=== PATIENT | male | born 1940 | race Caucasian/White ===

== ENCOUNTER 2020-05-12 17:21 | Inpatient (IN) | payer OTHER, MEDICARE ==
--- NOTE | 2020-05-12 18:38 | PDOC ---
History of Present Illness - General History Source: Patient Exam Limitations: No Limitations - History of Present Illness Initial Comments: 05/12/20 18:34 79-year-old male history of CHF hypertension atrial fibrillation on Coumadin chronic leg wounds and history of frequent falls here today status post fall. Patient states he fell out of bed this evening he was on the floor for a few hours denies any chest pain or palpitations did hit his head sustained contusion to his right eyebrow and his lip states he was unable to get up after his fall has not ambulated since then he called the ambulance. He does live at home with his he normally walks with a cane denies any extremity pain or pelvic pain no chest pain no shortness of breath <Shelby Romo - Last Filed: 05/12/20 18:34> <Amanda Ramirez - Last Filed: 05/12/20 22:28> - General Chief Complaint: Injury Stated Complaint: RT FACE, FALL THIS AM, Past History - Medical History Cardiac Disorders: Yes (CHF,A-FIB ON COUMADIN) COPD: No Diabetes: Yes - Psycho-Social/Smoking History Smoking History: Never smoked Have you smoked in the past 12 months: No <Shelby Romo - Last Filed: 05/12/20 18:34> <Amanda Ramirez - Last Filed: 05/12/20 22:28> - Medical History Allergies/Adverse Reactions: Allergies Allergy/AdvReac Type Severity Reaction Status Date / Time No Known Allergies Allergy Verified 12/29/19 16:29 Home Medications: Ambulatory Orders Allopurinol 300 mg PO DAILY 12/29/19 Carvedilol 25 mg PO DAILY 12/29/19 Diltiazem HCl [Cartia Xt] 120 mg PO DAILY 12/29/19 Dutasteride 0.5 mg PO DAILY 12/29/19 Linagliptin [Tradjenta] 5 mg PO DAILY 12/29/19 Magnesium 500 mg PO DAILY 12/29/19 Metolazone 2.5 mg PO ASDIR 12/29/19 Paricalcitol 1 mcg PO Q2D 12/29/19 Potassium Chloride 20 meq PO DAILY 12/29/19 Torsemide 20 mg PO DAILY 12/29/19 Warfarin Na [Coumadin] 5 mg PO DAILY 12/29/19 Carvedilol [Coreg -] 25 mg PO DAILY tablet 12/31/19 Review of Systems - Review of Systems Constitutional: No: Chills, Diaphoresis, Fever HEENTM: No: Eye Pain Respiratory: No: Cough, Orthopnea, Shortness of Breath Cardiac (ROS): Yes: Edema. No: Chest Pain ABD/GI: No: Nausea, Vomiting : No: Burning, Dysuria, Discharge Integumentary: Yes: Bruising Neurological: No: Headache, Numbness, Paresthesia All Other Systems: Reviewed and Negative <Shelby Romo - Last Filed: 05/12/20 18:34> *Physical Exam - Physical Exam 05/12/20 18:36 Awake alert no acute distress the face is noted for right significant periorbital edema hematoma and swelling extraocular motions are intact there is no palpable bony step-off. The right lower lip is noted for a small external laceration as well as an internal laceration significant hematoma there is no dental laxity no mandible or jaw malocclusion. No midline cervical spinal tenderness. Lungs are clear bilaterally heart is a regular regular no murmurs rubs or gallops abdomen is soft and nontender pelvis is stable extremities are warm well perfused he does have bilateral stockings to his shins for his chronic leg wounds there is no there is mild nonpitting edema upper extremities are atraumatic and nontender <Shelby Romo - Last Filed: 05/12/20 18:34> - Vital Signs Last Vital Signs Temp Pulse Resp BP Pulse Ox 98.5 F 64 20 176/97 H 95 05/12/20 17:22 05/12/20 17:22 05/12/20 17:22 05/12/20 17:22 05/12/20 17:22 <Amanda Ramirez - Last Filed: 05/12/20 22:28> ED Treatment Course - RADIOLOGY Radiology Studies Ordered: Category Date Time Status CERVICAL SPINE CT W/O CONTR [CT] Stat CT Scan 05/12/20 17:[address] W/O CONTRAST [CT] Stat CT Scan 05/12/20 17:[address] WITHOUT CONTRAST [CT] Stat CT Scan 05/12/20 17:37 Ordered <Shelby Romo - Last Filed: 05/12/20 18:34> - LABORATORY CBC & Chemistry Diagram: 05/12/20 19:28 05/12/20 19:11 - ADDITIONAL ORDERS Additional order review: Laboratory Results 05/12/20 05/12/20 05/12/20 19:28 19:11 19:11 WBC 9.6 RBC 4.14 Hgb 13.0 Hct 39.2 MCV 94.6 MCH 31.4 MCHC 33.2 RDW 14.2 D Plt Count 118 L D MPV 8.3 Absolute Neuts (auto) 7.8 Neutrophils % 80.9 D Lymphocytes % 8.4 D Monocytes % 10.3 H Eosinophils % 0.2 D Basophils % 0.2 PT with INR INR PTT (Actin FS) Sodium 141 Potassium 3.7 Chloride 102 Carbon Dioxide 29 Anion Gap 10 BUN 42.0 H Creatinine 1.6 H Est GFR (CKD-EPI)AfAm 46.47 Est GFR (CKD-EPI)NonAf 40.09 Random Glucose 116 H Calcium 9.5 Total Bilirubin 1.6 H AST 23 ALT 20 Alkaline Phosphatase 104 Creatine Kinase 172 Creatine Kinase Index 2.9 CK-MB (CK-2) 5.1 H Troponin I 0.03 Total Protein 6.6 Albumin 3.7 05/12/20 19:11 WBC RBC Hgb Hct MCV MCH MCHC RDW Plt Count MPV Absolute Neuts (auto) Neutrophils % Lymphocytes % Monocytes % Eosinophils % Basophils % PT with INR 19.6 H INR 1.77 H PTT (Actin FS) 36.2 Sodium Potassium Chloride Carbon Dioxide Anion Gap BUN Creatinine Est GFR (CKD-EPI)AfAm Est GFR (CKD-EPI)NonAf Random Glucose Calcium Total Bilirubin AST ALT Alkaline Phosphatase Creatine Kinase Creatine Kinase Index CK-MB (CK-2) Troponin I Total Protein Albumin 05/12/20 19:28 RBC 4.14 MCV 94.6 MCHC 33.2 RDW 14.2 D MPV 8.3 Neutrophils % 80.9 D Lymphocytes % 8.4 D Monocytes % 10.3 H Eosinophils % 0.2 D Basophils % 0.2 - RADIOLOGY Radiology Studies Ordered: Category Date Time Status CHEST X-RAY PORTABLE* [RAD] Stat Radiology 05/12/20 20:49 Taken - Medications Given in the ED: ED Medications Discontinued Medications Generic Name Dose Route Start Last Admin Trade Name Freq PRN Reason Stop Dose Admin Diphtheria/Tetanus/Acell Pertussis 0.5 ml 05/12/20 18:39 05/12/20 19:16 Boostrix - IM 05/12/20 18:40 0.5 ml .ONCE ONE Administration <Amanda Ramirez - Last Filed: 05/12/20 22:28> Medical Decision Making - Medical Decision Making 05/12/20 18:37 79-year-old male history of CHF A. fib hypertension on Coumadin status post trip and fall has a history of frequent falls. Did sustain trauma to his face and head will order CT head maxillofacial and cervical spine to rule out any underlying issues. Do have concerns the patient was unable to get up off the floor for several hours will send basic labs to rule out rhabdomyolysis patient may require admission as he is unsafe for discharge will likely require assessment by PT <Shelby Romo - Last Filed: 05/12/20 18:34> Discharge <Shelby Romo - Last Filed: 05/12/20 18:34> - Discharge Information Problems reviewed: Yes - Admission Yes <Amanda Ramirez - Last Filed: 05/12/20 22:28> - Discharge Information Clinical Impression/Diagnosis: COLIN (acute kidney injury), Gait disorder
[2020-05-12] MEDS ORDERED: DIPHTH,PERTUSS(ACELL),TET 0.5 ML DISP.SYRIN IM ONE ×2 (18:39→19:15)
[2020-05-12 19:28] LABS: BASO % 0.2 % (0-2.0); EOS % 0.2 % (0-4.5); HEMATOCRIT 39.2 % (35.4-49); LYMPH % 8.4 % (8-40); MCH 31.4 pg (25.7-33.7); MCHC 33.2 g/dl (32.0-35.9); MEAN CELL VOLUME 94.6 fl (80-96); MEAN PLT VOLUME 8.3 fl (7.5-11.1); MONO % 10.3 % (3.8-10.2); NEUT % 80.9 % (42.8-82.8); PLATELET COUNT 118 K/MM3 (134-434); RBC 4.14 M/mm3 (4.00-5.60); RDW 14.2 % (11.9-15.9); WHITE BLOOD COUNT 9.6 K/mm3 (4.0-10.8)
[2020-05-12 19:52] LABS: ACTIVATED PTT 36.2 SECONDS (25.2-36.5)
[2020-05-12 19:56] LABS: ALBUMIN 3.7 g/dl (3.4-5.0); BILIRUBIN,TOTAL 1.6 mg/dl (0.2-1); CALCIUM 9.5 mg/dl (8.5-10); CREATININE 1.6 mg/dl (0.55-1.3); POTASSIUM 3.7 mmol/L (3.5-5.1); TOT PROT 6.6 g/dl (6.4-8.2)
[2020-05-12 19:57] LABS: INR 1.77 (0.82-1.09); PROTHROMBIN TIME (PATIENT) 19.6 SEC (10.2-13.0)
--- NOTE | 2020-05-12 21:51 | PDOC ---
*Physical Exam - Vital Signs Last Vital Signs Temp Pulse Resp BP Pulse Ox 98.5 F 64 20 176/97 H 95 05/12/20 17:22 05/12/20 17:22 05/12/20 17:22 05/12/20 17:22 05/12/20 17:22 ED Treatment Course - LABORATORY CBC & Chemistry Diagram: 05/12/20 19:28 05/12/20 19:11 - ADDITIONAL ORDERS Additional order review: Laboratory Results 05/12/20 05/12/20 05/12/20 19:11 19:11 19:11 PT with INR 19.6 H INR 1.77 H PTT (Actin FS) 36.2 Sodium 141 Potassium 3.7 Chloride 102 Carbon Dioxide 29 Anion Gap 10 BUN 42.0 H Creatinine 1.6 H Est GFR (CKD-EPI)AfAm 46.47 Est GFR (CKD-EPI)NonAf 40.09 Random Glucose 116 H Calcium 9.5 Total Bilirubin 1.6 H AST 23 ALT 20 Alkaline Phosphatase 104 Creatine Kinase 172 Creatine Kinase Index 2.9 CK-MB (CK-2) 5.1 H Troponin I 0.03 Total Protein 6.6 Albumin 3.7 05/12/20 19:28 RBC 4.14 MCV 94.6 MCHC 33.2 RDW 14.2 D MPV 8.3 Neutrophils % 80.9 D Lymphocytes % 8.4 D Monocytes % 10.3 H Eosinophils % 0.2 D Basophils % 0.2 - RADIOLOGY Radiology Studies Ordered: Category Date Time Status CHEST X-RAY PORTABLE* [RAD] Stat Radiology 05/12/20 20:49 Taken - Medications Given in the ED: ED Medications Discontinued Medications Generic Name Dose Route Start Last Admin Trade Name Freq PRN Reason Stop Dose Admin Diphtheria/Tetanus/Acell Pertussis 0.5 ml 05/12/20 18:39 05/12/20 19:16 Boostrix - IM 05/12/20 18:40 0.5 ml .ONCE ONE Administration Medical Decision Making - Medical Decision Making 05/12/20 22:09 As noted above, this 79-year-old man with multiple medical problems is brought in by ambulance after a fall out of bed. Patient required EMS to lift the patient off of the floor and brought him to the ER. Patient states that he fell in a similar fashion with left serious effects approximately 2 days ago. He denies vertigo/lightheadedness, stating that his episodes of falling are usually related to falling out of bed. The patient was admitted earlier this year with frequent falls. He states that he was briefly in rehab for gait training. He states that he uses a cane at home for ambulation. He has a walker but does not use it Exam as noted Noncontrast head CT/facial bone CT/cervical spine CT performed. Studies interpreted by Dr. Gutierrez of the radiology staff: No evidence of acute intracranial pathology seen. The patient has evidence of normal pressure hydrocephalus. CT of the C-spine notable for marked C2/C3 spinal stenosis. No acute fractures or dislocations are seen. No facial fractures evident Laboratory evaluation notable for BUN of 42 with a creatinine of 1.6. This is somewhat elevated from previous values this year (Cre 1.4/Bun 25) In light of the patient's frequent falls and warfarin therapy, he should be admitted for neurologic observation/repeat head CT. Furthermore, appears that he has not had neurologic evaluation regarding his possible normal pressure hydrocephalus and cervical spinal stenosis/cord impingement Case discussed with SON Dumont of [facility] service. Patient will be admitted to Dr. Pena's service Discharge - Discharge Information Problems reviewed: Yes Clinical Impression/Diagnosis: COLIN (acute kidney injury), Gait disorder - Follow up/Referral - Patient Discharge Instructions - Post Discharge Activity
[2020-05-12] MEDS ORDERED: SODIUM CHLORIDE 1,000 ML IV SCH (22:30)
--- NOTE | 2020-05-12 22:35 | HP ---
CHIEF COMPLAINT: Fall at home, Unsteady Gait, Bruising to face and Lip PCP: [facility] Cardiology: Dr. Lazo Vascular/Wound Care: Dr. Alvino Marquez HISTORY OF PRESENT ILLNESS: This is a 79 y/o male with a PMHx of CHF, HTN, Afib (on Coumadin), chronic leg wounds, frequent falls. Who present to the ED for s/p fall. Patient states he fell out of bed this evening he was on the floor for a few hours, and could not get up. He reports hitting his head and lip, he denies LOC. Patient reports that he has a walker that he does not use. He denies fever, chills, cough, SOB, dizziness, WANG, CP, palpitations, AP, N/V/D, melena, hematochezia, dysuria. Patient denies sick contacts or recent travel. ER course was notable for: (1) Head CT- neg ICH (2) Facial Bones CT- neg fx (3) C- Spine CT- neg fx Recent Travel: None PAST MEDICAL HISTORY: See HPI PAST SURGICAL HISTORY: None reported Social History: Smoking: Alcohol: Drugs: Lives with spouse Allergies No Known Allergies Allergy (Verified 12/29/19 16:29) HOME MEDICATIONS: Home Medications Medication Instructions Recorded Allopurinol 300 mg PO DAILY 12/29/19 Carvedilol 25 mg PO DAILY 12/29/19 Diltiazem HCl [Cartia Xt] 120 mg PO DAILY 12/29/19 Dutasteride 0.5 mg PO DAILY 12/29/19 Linagliptin [Tradjenta] 5 mg PO DAILY 12/29/19 Magnesium 500 mg PO DAILY 12/29/19 Metolazone 2.5 mg PO ASDIR 12/29/19 Paricalcitol 1 mcg PO Q2D 12/29/19 Potassium Chloride 20 meq PO DAILY 12/29/19 Torsemide 20 mg PO DAILY 12/29/19 Warfarin Na [Coumadin] 5 mg PO DAILY 12/29/19 Carvedilol [Coreg -] 25 mg PO DAILY tablet 12/31/19 REVIEW OF SYSTEMS CONSTITUTIONAL: generalized weakness Absent: fever, chills, diaphoresis, malaise, loss of appetite, weight change HEENT: Absent: rhinorrhea, nasal congestion, throat pain, throat swelling, difficulty swallowing, mouth swelling, ear pain, eye pain, visual changes CARDIOVASCULAR: Absent: chest pain, syncope, palpitations, irregular heart rate, lightheadedness, peripheral edema RESPIRATORY: Absent: cough, shortness of breath, dyspnea with exertion, orthopnea, wheezing, stridor, hemoptysis GASTROINTESTINAL: Absent: abdominal pain, abdominal distension, nausea, vomiting, diarrhea, constipation, melena, hematochezia GENITOURINARY: Absent: dysuria, frequency, urgency, hesitancy, hematuria, flank pain, genital pain MUSCULOSKELETAL: Absent: myalgia, arthralgia, joint swelling, back pain, neck pain SKIN: hematoma right eye lid, hematoma right upper lip Absent: rash, itching, pallor HEMATOLOGIC/IMMUNOLOGIC: easy bruising Absent: easy bleeding, lymphadenopathy, frequent infections ENDOCRINE: Absent: unexplained weight gain, unexplained weight loss, heat intolerance, cold intolerance NEUROLOGIC: unsteady gait Absent: headache, focal weakness or paresthesias, dizziness, seizure, mental status changes, bladder or bowel incontinence PSYCHIATRIC: Absent: anxiety, depression, suicidal or homicidal ideation, hallucinations. PHYSICAL EXAMINATION Vital Signs - 24 hr 05/12/20 17:22 Temperature 98.5 F Pulse Rate 64 Respiratory 20 Rate Blood Pressure 176/97 H O2 Sat by Pulse 95 Oximetry (%) GENERAL: Awake, alert, and fully oriented, in no acute distress. HEAD: Normal cephalic with ecchymotic bruising to face EYES: Hematoma to R- eye lid. Pupils equal, round and reactive to light, extraocular movements intact, sclera anicteric, conjunctiva clear. No lid lag. EARS, NOSE, THROAT: Ears normal, nares patent, oropharynx clear without exudates. Moist mucous membranes. NECK: Normal range of motion, supple without lymphadenopathy, JVD, or masses. LUNGS: Breath sounds scattered diffuse rhonchi throughout. No accessory muscle use. HEART: Irregular rate and rhythm, normal S1 and S2 with murmur, No rub or gallop. ABDOMEN: Soft, nontender, not distended, normoactive bowel sounds, no guarding, no rebound, no masses. No hepatomegaly or splenomegaly. MUSCULOSKELETAL: Normal range of motion at all joints. No bony deformities or tenderness. No CVA tenderness. UPPER EXTREMITIES: 2+ pulses, warm, well-perfused. No cyanosis. No clubbing. No peripheral edema. LOWER EXTREMITIES: 2+ pulses, warm, well-perfused. No calf tenderness. Bilateral +2 pitting peripheral edema. NEUROLOGICAL: Cranial nerves II-XII intact. Normal speech. Gait not observed. PSYCHIATRIC: Cooperative. Good eye contact. Appropriate mood and affect. SKIN: Venous Stasis Ulcers, poor skin turgor. Warm, dry, no rashes noted, normal capillary refill. Laboratory Results - last 24 hr 05/12/20 05/12/20 05/12/20 19:11 19:11 19:11 WBC RBC Hgb Hct MCV MCH MCHC RDW Plt Count MPV Absolute Neuts (auto) Neutrophils % Lymphocytes % Monocytes % Eosinophils % Basophils % PT with INR 19.6 H INR 1.77 H PTT (Actin FS) 36.2 Sodium 141 Potassium 3.7 Chloride 102 Carbon Dioxide 29 Anion Gap 10 BUN 42.0 H Creatinine 1.6 H Est GFR (CKD-EPI)AfAm 46.47 Est GFR (CKD-EPI)NonAf 40.09 Random Glucose 116 H Calcium 9.5 Total Bilirubin 1.6 H AST 23 ALT 20 Alkaline Phosphatase 104 Creatine Kinase 172 Creatine Kinase Index 2.9 CK-MB (CK-2) 5.1 H Troponin I 0.03 Total Protein 6.6 Albumin 3.7 05/12/20 19:28 WBC 9.6 RBC 4.14 Hgb 13.0 Hct 39.2 MCV 94.6 MCH 31.4 MCHC 33.2 RDW 14.2 D Plt Count 118 L D MPV 8.3 Absolute Neuts (auto) 7.8 Neutrophils % 80.9 D Lymphocytes % 8.4 D Monocytes % 10.3 H Eosinophils % 0.2 D Basophils % 0.2 PT with INR INR PTT (Actin FS) Sodium Potassium Chloride Carbon Dioxide Anion Gap BUN Creatinine Est GFR (CKD-EPI)AfAm Est GFR (CKD-EPI)NonAf Random Glucose Calcium Total Bilirubin AST ALT Alkaline Phosphatase Creatine Kinase Creatine Kinase Index CK-MB (CK-2) Troponin I Total Protein Albumin ASSESSMENT/PLAN: This is a 79 y/o male with a PMHx of: CHF, Afib, HTN, frequent Falls, chronic b/l LE edema. Admitted for Frequent Falls, COLIN for further evaluation of their emergent condition Plan: 1. Frequent Falls On coumadin (Afib) Head CT- neg Facial Bones CT- neg fx C- Spine CT- neg fx Repeat Head CT in 12 Hrs Neuro checks Monitor vitals Fall Precautions PT eval Consider STR 2. COLIN Likely due to dehydration slightly above baseline (1.4-1.5) Consider Nephrology consult Monitor CMP Avoid Nephrotoxic drugs 3. Atrial Fibrillation EKG reviewed [id number] 4 Hold Coumadin until repeat Head CT concerning for ICH secondary to recent fall INR Subtherapeutic 1.77 4. Congestive Heart Failure Chest xray image- pulm vasc congestion Continue Lasix Strict INOs Daily weight Monitor vitals Monitor CMP Elevate extremities 5. HTN suboptimal Monitor BP Continue home meds Monitor renal function 6. Screening for Covid 19 Low Risk COVID PCR-pending Isolation Precautions FEN Fluid Restriction Replete lytes Low Na Diet DVT ppx OOB TEDs Continue Coumadin (post 2nd Head CT-results) Dispo: Requires Inpatient Care Family Medical History Family History: Unremarkable Problem List - Problem (1) Falls frequently Code(s): R29.6 - REPEATED FALLS (2) Gait disorder Code(s): R26.9 - UNSPECIFIED ABNORMALITIES OF GAIT AND MOBILITY (3) COLIN (acute kidney injury) Code(s): N17.9 - ACUTE KIDNEY FAILURE, UNSPECIFIED (4) A-fib Code(s): I48.91 - UNSPECIFIED ATRIAL FIBRILLATION (5) Supratherapeutic INR Code(s): R79.1 - ABNORMAL COAGULATION PROFILE (6) CHF (congestive heart failure) Code(s): I50.9 - HEART FAILURE, UNSPECIFIED (7) HTN (hypertension) Code(s): I10 - ESSENTIAL (PRIMARY) HYPERTENSION (8) Encounter for screening laboratory testing for COVID-19 virus Code(s): Z11.59 - ENCOUNTER FOR SCREENING FOR OTHER VIRAL DISEASES Visit type - Medication Review Med list reviewed for High Risk Meds patients 65 and older: Yes - Emergency Visit Emergency Visit: Yes ED Registration Date: 05/12/20 Care time: The patient presented to the Emergency Department on the above date and was hospitalized for further evaluation of their emergent condition. - New Patient This patient is new to me today: Yes Date on this admission: 05/12/20 - Critical Care Critical Care patient: No
[2020-05-12 23:29] LABS: EPITHELIAL CELLS RARE /hpf
[2020-05-13 01:38] VITALS: BMI 37.0
[2020-05-13 08:24] LABS: BASO % 0.4 % (0-2.0); EOS % 1.2 % (0-4.5); HEMATOCRIT 36.9 % (35.4-49); HEMOGLOBIN 11.6 GM/dl (11.7-16.9); LYMPH % 16.6 % (8-40); MCH 29.7 pg (25.7-33.7); MCHC 31.4 g/dl (32.0-35.9); MEAN CELL VOLUME 94.5 fl (80-96); MEAN PLT VOLUME 8.6 fl (7.5-11.1); NEUT % 68.8 % (42.8-82.8); PLATELET COUNT 104 K/MM3 (134-434); RDW 14.7 % (11.9-15.9); WHITE BLOOD COUNT 6.2 K/mm3 (4.0-10.8)
[2020-05-13 08:29] LABS: ALBUMIN 3.2 g/dl (3.4-5.0); BILIRUBIN,TOTAL 1.6 mg/dl (0.2-1); CALCIUM 9.3 mg/dl (8.5-10); CREATININE 1.3 mg/dl (0.55-1.3); MAGNESIUM 1.5 mg/dL (1.8-2.4); TOT PROT 5.7 g/dl (6.4-8.2)
[2020-05-13] MEDS ORDERED: POTASSIUM CHLORIDE ORAL LIQUID 20 MEQ/15 ML PO ONE ×2 (09:01→17:00)
[2020-05-13] MEDS ORDERED: MAGNESIUM 2GM/50ML STERILE WATER IVPB IVPB ONE (09:01)
[2020-05-13] MEDS ORDERED: CARVEDILOL 25 MG TABLET (FP) PO SCH (10:00)
[2020-05-13] MEDS ORDERED: FUROSEMIDE 40 MG/4 ML INJECTABLE VIAL IVPUSH SCH (10:00)
[2020-05-13] MEDS: DUTASTERIDE 0.5 MG CAP (FP) PO SCH (10:09)
[2020-05-13] MEDS: ALLOPURINOL 300 MG TABLET (FP) PO SCH (10:09)
--- NOTE | 2020-05-13 11:43 | PN ---
Progress Note, Physician Chief Complaint: s/p fall History of Present Illness: 24HR EVENTS - head CT negative for bleed, repeat CT due later today -coumadin on hold HPI: This is a 79 y/o male with a PMHx of CHF, HTN, Afib (on Coumadin), chronic leg wounds, frequent falls. Who present to the ED for s/p fall. Patient states he fell out of bed this evening he was on the floor for a few hours, and could not get up. He reports hitting his head and lip, he denies LOC. Patient reports that he has a walker that he does not use. He denies fever, chills, cough, SOB, dizziness, WANG, CP, palpitations, AP, N/V/D, melena, hematochezia, dysuria. Patient denies sick contacts or recent travel. - Current Medication List Current Medications: Active Medications Allopurinol (Zyloprim -) 300 mg PO DAILY [facility] Last Admin: 05/13/20 10:09 Dose: 300 mg Documented by: Carvedilol (Coreg -) 25 mg PO DAILY [facility] Diltiazem HCl (Cardizem Cd -) 120 mg PO DAILY [facility] Last Admin: 05/13/20 10:09 Dose: 120 mg Documented by: Dutasteride (Avodart -) 0.5 mg PO DAILY [facility] Last Admin: 05/13/20 10:09 Dose: 0.5 mg Documented by: Furosemide (Lasix Injection -) 20 mg IVPUSH DAILY [facility] Last Admin: 05/13/20 10:09 Dose: 20 mg Documented by: - Objective Vital Signs: Vital Signs Temperature 98.4 F 05/13/20 08:45 Pulse Rate 79 05/13/20 08:45 Respiratory Rate 18 05/13/20 09:00 Blood Pressure 116/68 05/13/20 08:45 O2 Sat by Pulse Oximetry (%) 94 L 05/13/20 09:00 Constitutional: Yes: No Distress, Calm Eyes: Yes: Other ( Other (right orbital ecchymosis, right upper and lower lip swollen)) HENT: Yes: Other (swelling to right side of face) Neck: Yes: Supple Cardiovascular: Yes: Pulse Irregular Respiratory: Yes: Regular, CTA Bilaterally Gastrointestinal: Yes: Soft, Abdomen, Obese ...Rectal Exam: Yes: Deferred Musculoskeletal: Yes: Joint Stiffness, Muscle Weakness Extremities: Yes: Other (hyperpigmented LEs, LLE with dressing in place) Edema: Yes Edema: LLE: Trace, RLE: Trace Peripheral Pulses WNL: Yes Peripheral Pulses: Left Radial: 2+, Right Radial: 2+ Integumentary: Yes: Venous Stasis Changes ( Venous Stasis Changes (b/l LEs)) Neurological: Yes: Unsteady Gait, Weakness ...Motor Strength: LLE (4/5), RLE (4/5) Psychiatric: Yes: Alert, Oriented Labs: CBC, BMP 05/13/20 06:57 05/13/20 06:57 INR, PTT INR 1.77 (0.82-1.09) H 05/12/20 19:11 Problem List - Problems (1) BPH (benign prostatic hyperplasia) Assessment/Plan: continue avodart Code(s): N40.0 - BENIGN PROSTATIC HYPERPLASIA WITHOUT LOWER URINRY TRACT SYMP (2) DVT prophylaxis Assessment/Plan: OOB to chair daily Code(s): Z29.9 - ENCOUNTER FOR PROPHYLACTIC MEASURES, UNSPECIFIED (3) A-fib Assessment/Plan: hold coumadin until repeat head CT finalized continue coreg, cardizem continuous tele Code(s): I48.91 - UNSPECIFIED ATRIAL FIBRILLATION (4) CHF (congestive heart failure) Assessment/Plan: switch lasix back to home dose of torsemide hold metolazone which is BIW daily weights replete electrolytes PRN KCL BID as verified by pt's outpt pharmacy Code(s): I50.9 - HEART FAILURE, UNSPECIFIED (5) Gait disorder Assessment/Plan: PT daily Short term rehab recommended fall precautions, bed alarm Code(s): R26.9 - UNSPECIFIED ABNORMALITIES OF GAIT AND MOBILITY (6) HTN (hypertension) Assessment/Plan: coreg 25mg BID cardiac diet Code(s): I10 - ESSENTIAL (PRIMARY) HYPERTENSION (7) Falls frequently Assessment/Plan: will restart coumadin , depending on head CT results assist with ADLs Code(s): R29.6 - REPEATED FALLS Impression/Plan Impression/Plan: Dispo: Pt requires discharge to SNF/Short term rehab due to unsteady gait and f requent falls Code status: Full Visit type - Emergency Visit Emergency Visit: Yes ED Registration Date: 05/12/20 Care time: The patient presented to the Emergency Department on the above date and was hospitalized for further evaluation of their emergent condition. - New Patient This patient is new to me today: Yes Date on this admission: 05/13/20 - Critical Care Critical Care patient: No - Discharge Referral Referred to [facility] No - Medication Review Med list reviewed for High Risk Meds patients 65 and older: Yes
--- NOTE | 2020-05-13 12:37 | EKG ---
Test Reason : Blood Pressure : / mmHG Vent. Rate : 086 BPM Atrial Rate : 087 BPM P-R Int : 000 ms QRS Dur : 112 ms QT Int : 420 ms P-R-T Axes : 000 110 184 degrees QTc Int : 502 ms ATRIAL FIBRILLATION RIGHT AXIS DEVIATION ABNORMAL ECG Confirmed by ADALBERTO PEACOCK MD ([id number]) on 05/13/2020 12:37:12 PM Referred By: MD REDDY Confirmed By:ADALBERTO PEACOCK MD
[2020-05-13] MEDS ORDERED: CARVEDILOL 25 MG TABLET (FP) PO ONE (13:00)
[2020-05-13] MEDS ORDERED: ACETAMINOPHEN 325 MG TABLET (FP) PO PRN (15:34)
[2020-05-13] MEDS: TORSEMIDE 20 MG TABLET (FP) PO SCH (18:22)
[2020-05-13] MEDS: SENNOSIDES 8.6MG TABLET (FP) PO SCH (21:37)
[2020-05-13] MEDS: DOCUSATE SODIUM 100 MG CAPSULE (FP) PO SCH (21:37)
[2020-05-13] MEDS: CARVEDILOL 25 MG TABLET (FP) PO SCH (21:37)
[2020-05-13] MEDS ORDERED: TORSEMIDE 20 MG TABLET (FP) PO SCH (22:00)
[2020-05-14] MEDS ORDERED: LOCK ITEM NR ONE (06:37)
[2020-05-14 07:55] LABS: BASO % 1.1 % (0-2.0); EOS % 3.3 % (0-4.5); HEMATOCRIT 38.4 % (35.4-49); HEMOGLOBIN 12.1 GM/dl (11.7-16.9); LYMPH % 18.6 % (8-40); MCH 29.8 pg (25.7-33.7); MCHC 31.4 g/dl (32.0-35.9); MEAN PLT VOLUME 8.1 fl (7.5-11.1); MONO % 12.2 % (3.8-10.2); NEUT % 64.8 % (42.8-82.8); PLATELET COUNT 114 K/MM3 (134-434); RBC 4.04 M/mm3 (4.00-5.60); RDW 14.4 % (11.9-15.9); WHITE BLOOD COUNT 5.9 K/mm3 (4.0-10.8)
[2020-05-14 08:00] LABS: ALBUMIN 3.3 g/dl (3.4-5.0); BILIRUBIN,TOTAL 1.4 mg/dl (0.2-1); CALCIUM 9.2 mg/dl (8.5-10); CREATININE 1.3 mg/dl (0.55-1.3); MAGNESIUM 1.6 mg/dL (1.8-2.4)
[2020-05-14 08:32] LABS: ACTIVATED PTT 31.3 SECONDS (25.2-36.5)
[2020-05-14 08:36] LABS: INR 1.41 (0.82-1.09); PROTHROMBIN TIME (PATIENT) 15.7 SEC (10.2-13.0)
[2020-05-14] MEDS ORDERED: MAGNESIUM SULFATE IN WATER 2 GM/50 ML IVPB IVPB ONE (08:48)
[2020-05-14] MEDS ORDERED: POTASSIUM CHLORIDE ORAL LIQUID 20 MEQ/15 ML PO ONE (09:00)
[2020-05-14 09:30] LABS: POTASSIUM 2.9 mmol/L (3.5-5.1)
[2020-05-14] MEDS: ALLOPURINOL 300 MG TABLET (FP) PO SCH (09:34)
[2020-05-14] MEDS: DOCUSATE SODIUM 100 MG CAPSULE (FP) PO SCH ×2 (09:34→21:55)
[2020-05-14] MEDS: POTASSIUM CHLORIDE TABS 20 MEQ TABLET.ER (FP) PO SCH ×2 (09:34→21:55)
[2020-05-14] MEDS: MAGNESIUM OXIDE 400 MG TABLET (FP) PO SCH (09:35)
[2020-05-14] MEDS: TORSEMIDE 20 MG TABLET (FP) PO SCH ×2 (09:35→18:42)
[2020-05-14] MEDS: DUTASTERIDE 0.5 MG CAP (FP) PO SCH (09:35)
[2020-05-14] MEDS: CARVEDILOL 25 MG TABLET (FP) PO SCH ×2 (09:35→21:55)
--- NOTE | 2020-05-14 10:03 | DS ---
Physical Exam: SUBJECTIVE: Patient seen and examined OBJECTIVE: Vital Signs Period Temp Pulse Resp BP Sys/[place] Pulse Ox Last 24 Hr 98.2 F-98.7 F 64-69 18-20 138-163/70-84 92-100 PHYSICAL EXAM GENERAL: The patient is awake, alert, and fully oriented, in no acute distress. HEAD: Normal with no signs of trauma. EYES: PERRL, + orbital ecchymosis sclera anicteric, conjunctiva clear. ENT: nares patent, oropharynx clear without exudates, moist mucous membranes. + swelling and ecchymosis to right side of upper and lower lip. NECK: Trachea midline, full range of motion, supple. LUNGS: Breath sounds equal, clear to auscultation bilaterally, no wheezes, no crackles, no accessory muscle use. HEART: Regular rate and rhythm, S1, S2 without murmur, rub or gallop. ABDOMEN: Soft, nontender, nondistended, normoactive bowel sounds, no guarding, no rebound, no hepatosplenomegaly, no masses. EXTREMITIES: 2+ pulses, warm, well-perfused, no edema. NEUROLOGICAL: Slow speech, gait not observed, pt seated at edge of bed. PSYCH: Normal mood, normal affect. SKIN: Warm, dry, + hyperpigmentation b/l LEs, LLE with bandage in place. LABS Laboratory Results - last 24 hr 05/12/20 05/13/20 05/13/20 23:50 06:57 12:32 WBC RBC Hgb Hct MCV MCH MCHC RDW Plt Count MPV Absolute Neuts (auto) Neutrophils % Lymphocytes % Monocytes % Eosinophils % Basophils % PT with INR INR PTT (Actin FS) Sodium Potassium Chloride Carbon Dioxide Anion Gap BUN Creatinine Est GFR (CKD-EPI)AfAm Est GFR (CKD-EPI)NonAf POC Glucometer 133 Random Glucose Calcium Magnesium Total Bilirubin AST ALT Alkaline Phosphatase Total Protein Albumin TSH 0.79 COVID-19 ([facility]) Not detected 05/13/20 05/13/20 05/14/20 16:48 21:43 07:05 WBC 5.9 RBC 4.04 Hgb 12.1 Hct 38.4 MCV 95.0 MCH 29.8 MCHC 31.4 L RDW 14.4 Plt Count 114 L MPV 8.1 Absolute Neuts (auto) 3.8 Neutrophils % 64.8 Lymphocytes % 18.6 Monocytes % 12.2 H Eosinophils % 3.3 D Basophils % 1.1 PT with INR INR PTT (Actin FS) Sodium Potassium Chloride Carbon Dioxide Anion Gap BUN Creatinine Est GFR (CKD-EPI)AfAm Est GFR (CKD-EPI)NonAf POC Glucometer 114 126 Random Glucose Calcium Magnesium Total Bilirubin AST ALT Alkaline Phosphatase Total Protein Albumin TSH COVID-19 ([facility]) 05/14/20 05/14/20 07:05 07:05 WBC RBC Hgb Hct MCV MCH MCHC RDW Plt Count MPV Absolute Neuts (auto) Neutrophils % Lymphocytes % Monocytes % Eosinophils % Basophils % PT with INR 15.7 H INR 1.41 H PTT (Actin FS) 31.3 Sodium 138 Potassium 2.9 L* Chloride 98 Carbon Dioxide 30 Anion Gap 10 BUN 35.0 H Creatinine 1.3 Est GFR (CKD-EPI)AfAm 59.73 Est GFR (CKD-EPI)NonAf 51.53 POC Glucometer Random Glucose 110 H Calcium 9.2 Magnesium 1.6 L Total Bilirubin 1.4 H AST 19 ALT 16 Alkaline Phosphatase 87 Total Protein 6.0 L Albumin 3.3 L TSH COVID-19 ([facility]) HOSPITAL COURSE: Date of Admission:05/12/20 Date of Discharge: 05/14/20 Minutes to complete discharge: 45 Discharge Summary Problems reviewed: Yes Reason For Visit: ACUTE KIDNEY INJURY, GAIT DISORDER. Current Active Problems A-fib (Acute) COLIN (acute kidney injury) (Acute) BPH (benign prostatic hyperplasia) (Acute) CHF (congestive heart failure) (Acute) DVT prophylaxis (Acute) Encounter for screening laboratory testing for COVID-19 virus (Acute) Gait disorder (Acute) HTN (hypertension) (Acute) Supratherapeutic INR (Acute) Procedures: Principal: Facial Bones CT 05/12/2020. Impression: No fracture is identified. Reported By: Maikel Gutierrez MD 05/12/20 [address]. . Head CT 05/12/2020. Impression: No CT evidence of acute intracranial pathology. Note is again made of mild to moderate ventricular dilatation probably due to central atrophy. Correlate clinically in regards to the possibility of normal pressure hydrocephalus. Mild periventricular chronic microvascular ischemic changes are seen. There has been no definite interval change in comparison to a prior CT exam of 12/29/2019.Reported By: Maikel Gutierrez MD 05/12/[address] cervical spine 05/12/2020. Impression: Limited exam as described above. No obvious acute fracture is noted. Marked C2- C3 degenerative central canal stenosis is seen with corresponding spinal cord impingement. Reported By: Maikel Gutierrez MD 05/12/[address] 05/13/2020. IMPRESSION: No significant interval change or CT evidence of acute intracranial pathology is identified. Reported By: Shukri Paez MD 05/13/20 [id number]. Other Procedures: EKG 05/12/2020. Afib 86bpm. Urine Culture 05/13/2020 - No growth. COVID -19 screen - Not detected Hospital Course: This is a 79 y/o male with a PMHx of CHF, HTN, Afib (on Coumadin), chronic leg wounds, frequent falls. Who present to the ED for s/p fall. Patient states he fell out of bed this evening he was on the floor for a few hours, and could not get up. He reports hitting his head and lip, he denies LOC. Patient reports that he has a walker that he does not use. He denies fever, chills, cough, SOB, dizziness, WANG, CP, palpitations, AP, N/V/D, melena, hematochezia, dysuria. Patient denies sick contacts or recent travel. ER course was notable for: (1) Head CT- neg ICH (2) Facial Bones CT- neg fx (3) C- Spine CT- neg fx You were admitted for observation with repeat head CT 36hrs later. Repeat head CT was negtive on the afternoon of 05/13 and coumadin restarted on the morning of 05/14. Your INR was 1.41 on 05/14, please follow up with your mental health clinician or PCP for repeat INR testing within 5days to determine if coumadin levels are within therapeutic range. On admission your creatinine was slightly elevated at 1.6, your were gently fluid resuscitated with Creatinine downtrending to 1.3. Your potassium and Magnesium were replaced on a daily basis due to significantly low levels. Health Concerns: hypokalemia - your potassium was persistently low during your hospital course which required aggressive supplementation. As per your pharmacist, you take potassium 20meq twice daily, please increase to 40meq in the morning and 20meq in the afternoon. Unsteady gait/ frequent falls while on anticoagulation -physical therapy recommended short rehabilitation, which you refused. The risk associated with falls while on anticoagulation were reviewed with you. you refused short term rehab placement and opted for home PT provided through the [facility]. Goals: Fall prevention: Simple tips to prevent falls Falls put you at risk of serious injury. Prevent falls with these simple fall- prevention measures, from reviewing your medications to hazard-proofing your home. 1. Make an appointment with your doctor Begin your fall-prevention plan by making an appointment with your doctor. Be prepared to answer questions such as: What medications are you taking? Make a list of your prescription and vcbs-iym-[id number] medications and supplements, or bring them with you to the appointment. Your doctor can review your medications for side effects and interactions that may increase your risk of falling. To help with fall prevention, your doctor may consider weaning you off medications that make you tired or affect your thinking, such as sedatives and some types of antidepressants. Have you fallen before? Write down the details, including when, where and how you fell. Be prepared to discuss instances when you almost fell but were caught by someone or managed to grab hold of something just in time. Details such as these may help your doctor identify specific fall-prevention strategies. Could your health conditions cause a fall? Certain eye and ear disorders may increase your risk of falls. Be prepared to discuss your health conditions and how comfortable you are when you walk for example, do you feel any dizziness, joint pain, shortness of breath, or numbness in your feet and legs when you walk? Your doctor may evaluate your muscle strength, balance and walking style (gait) as well. 2. Keep moving Physical activity can go a long way toward fall prevention. With your doctor's OK, consider activities such as walking, water workouts or bushra chi a gentle exercise that involves slow and graceful dance-like movements. Such activities reduce the risk of falls by improving strength, balance, coordination and flexibility. If you avoid physical activity because you're afraid it will make a fall more likely, tell your doctor. He or she may recommend carefully monitored exercise programs or refer you to a physical therapist. The physical therapist can create a custom exercise program aimed at improving your balance, flexibility, muscle strength and gait. 3. Wear sensible shoes Consider changing your footwear as part of your fall-prevention plan. High heels, floppy slippers and shoes with slick soles can make you slip, stumble and fall. So can walking in your stocking feet. Instead, wear properly fitting, sturdy shoes with nonskid soles. Sensible shoes may also reduce joint pain. 4. Remove home hazards Take a look around your home. Your living room, kitchen, bedroom, bathroom, hallways and stairways may be filled with hazards. To make your home safer: Remove boxes, newspapers, electrical cords and phone cords from walkways. Move coffee tables, magazine racks and plant stands from high-traffic areas. Secure loose rugs with double-faced tape, tacks or a slip-resistant backing or remove loose rugs from your home. Repair loose, wooden floorboards and carpeting right away. Store clothing, dishes, food and other necessities within easy reach. Immediately clean spilled liquids, grease or food. Use nonslip mats in your bathtub or shower. Use a bath seat, which allows you to sit while showering. 5. Light up your living space Keep your home brightly lit to avoid tripping on objects that are hard to see. Also: Place night lights in your bedroom, bathroom and hallways. Place a lamp within reach of your bed for sugcgp-dq-qlp-night needs. Make clear paths to light switches that aren't near room entrances. Consider trading traditional switches for hauc-pz-fax-dark or illuminated switches. Turn on the lights before going up or down stairs. Store flashlights in uvjb-qj-nxnn places in case of power outages. 6. Use assistive devices Your doctor might recommend using a cane or walker to keep you steady. Other assistive devices can help, too. For example: Hand rails for both sides of stairways Nonslip treads for bare-wood steps A raised toilet seat or one with armrests Grab bars for the shower or tub A sturdy plastic seat for the shower or tub plus a hand-held shower nozzle for bathing while sitting down If necessary, ask your doctor for a referral to an occupational therapist. He or she can help you brainstorm other fall-prevention strategies. Some solutions are easily installed and relatively inexpensive. Others may require professional help or a larger investment. If you're concerned about the cost, remember that an investment in fall prevention is an investment in your independence. Condition: Guarded - Instructions Diet, Activity, Other Instructions: Please call Dr. Jeet Smiley (mental health clinician) for follow up appointment to check INR Address: [address] [place] [id number] [address] call PCP Dr[address] Pavel West for follow up after your most recent fall. [facility] [address], [id number] other locations You will be scheduled to have a [facility] evaluation after discharge. At this appointment, you may receive a referral for home physical therapy. Disposition: HOME - Home Medications Comprehensive Discharge Medication List: Ambulatory Orders Allopurinol 300 mg PO DAILY 12/29/19 Diltiazem HCl [Cartia Xt] 120 mg PO DAILY 12/29/19 Dutasteride 0.5 mg PO DAILY 12/29/19 Linagliptin [Tradjenta] 5 mg PO DAILY 12/29/19 Magnesium 500 mg PO DAILY 12/29/19 Metolazone 2.5 mg PO WEEKLY 12/29/19 Paricalcitol 1 mcg PO Q2D 12/29/19 Potassium Chloride 20 meq PO BID 12/29/19 Warfarin Na [Coumadin -] 5 mg PO DAILY 12/29/19 Carvedilol [Coreg -] 25 mg PO BID 05/13/20 Carvedilol [Coreg -] 25 mg PO BID tablet 05/14/20 Torsemide [Demadex -] 20 mg PO DAILY@1800 tablet 05/14/20 Torsemide [Demadex -] 40 mg PO DAILY@1000 tablet 05/14/20 Prescription Drug Monitoring Program (I-STOP) results: I-STOP not reviewed Problem List - Problems (1) BPH (benign prostatic hyperplasia) Code(s): N40.0 - BENIGN PROSTATIC HYPERPLASIA WITHOUT LOWER URINRY TRACT SYMP (2) DVT prophylaxis Code(s): Z29.9 - ENCOUNTER FOR PROPHYLACTIC MEASURES, UNSPECIFIED (3) A-fib Code(s): I48.91 - UNSPECIFIED ATRIAL FIBRILLATION Qualifiers: Atrial fibrillation type: longstanding persistent Qualified Code(s): I48.11 - Longstanding persistent atrial fibrillation (4) CHF (congestive heart failure) Code(s): I50.9 - HEART FAILURE, UNSPECIFIED Qualifiers: Heart failure type: diastolic Heart failure chronicity: chronic Qualified Code(s): I50.32 - Chronic diastolic (congestive) heart failure (5) Gait disorder Code(s): R26.9 - UNSPECIFIED ABNORMALITIES OF GAIT AND MOBILITY (6) HTN (hypertension) Code(s): I10 - ESSENTIAL (PRIMARY) HYPERTENSION Qualifiers: Hypertension type: essential hypertension Qualified Code(s): I10 - Essential (primary) hypertension (7) Falls frequently Code(s): R29.6 - REPEATED FALLS This patient is new to me today: No Emergency Visit: Yes ED Registration Date: 05/12/20 Care time: The patient presented to the Emergency Department on the above date and was hospitalized for further evaluation of their emergent condition. Critical Care patient: No - Discharge Referral Referred to [facility] No
--- NOTE | 2020-05-14 10:49 | FALL ---
Fall Exam - Event Witnessed fall: No Location of Fall: Patient Room Fall from: While ambulating - Pre-Fall Fall Risk: HIGH Mental Status: Alert, Oriented (pt is oriented but does not follow the instructions given by staff. He currently overestimates his physical abilities and does not use the assistive devices provided him.) Current Medications: Current Medications Generic Name Dose Route Start Last Admin Trade Name Freq PRN Reason Stop Dose Admin Acetaminophen 650 mg 05/13/20 15:34 Tylenol - PO Q6H PRN PAIN LEVEL 4 - 6 Allopurinol 300 mg 05/13/20 10:00 05/14/20 09:34 Zyloprim - PO 300 mg DAILY JOHN Administration Carvedilol 25 mg 05/13/20 22:00 05/14/20 09:35 Coreg - PO Not Given BID JOHN Diltiazem HCl 120 mg 05/13/20 10:00 05/14/20 09:34 Cardizem Cd - PO 120 mg DAILY JOHN Administration Docusate Sodium 100 mg 05/13/20 22:00 05/14/20 09:34 Colace - PO 100 mg BID JOHN Administration Dutasteride 0.5 mg 05/13/20 10:00 05/14/20 09:35 Avodart - PO 0.5 mg DAILY JOHN Administration Magnesium Oxide 400 mg 05/14/20 10:00 05/14/20 09:35 Mag-Ox - PO 400 mg DAILY JOHN Administration Magnesium Sulfate/Dextrose 1 gm 05/14/20 12:00 Magnesium 1gm/D5w - IVPB 05/14/20 12:01 ONCE ONE Paricalcitol 1 mcg 05/15/20 10:00 Zemplar - PO Q2D JOHN Potassium Chloride 20 meq 05/14/20 10:00 05/14/20 09:34 K-Dur - PO 20 meq BID JOHN Administration Senna 2 tab 05/13/20 22:00 05/13/20 21:37 Senna - PO 2 tab HS JOHN Administration Torsemide 40 mg 05/14/20 10:00 05/14/20 09:35 Demadex - PO 40 mg DAILY@1000 JOHN Administration Torsemide 20 mg 05/13/20 18:00 05/13/20 18:22 Demadex - PO 20 mg DAILY@1800 JOHN Administration Warfarin Sodium 5 mg 05/14/20 18:00 Coumadin - PO DAILY@1800 JOHN - Post-Fall Patient Outcome: Hematoma (right upper thigh bruising/small hematoma which appears related to his prior fall onto right side of body two days prior) Exam Findings: Pt has shuffle gait and is unsteady on his feet, which is baseline. X-ray right hip 05/14/2020 without acute pathology Treatment: Ice Pack Vital Signs: Vital Signs Temperature 98.2 F 05/14/20 06:00 Pulse Rate 69 05/14/20 06:00 Respiratory Rate 20 05/14/20 06:00 Blood Pressure 163/78 05/14/20 06:00 O2 Sat by Pulse Oximetry (%) 100 05/14/20 06:00 LOC Post-Fall: Unchanged Identify factors for HIGH RISK for Head Injury: None of the above (NOTE - coumadin has been on hold for two days due to admission dx of fall with head injury. Latest INR 1.41)
--- NOTE | 2020-05-14 11:23 | PN ---
Progress Note, Physician Chief Complaint: pt wishes to forgo short term rehab placement and be discharged home History of Present Illness: 24HR EVENTS - repeat head CT negative for bleed. - planned discharged home on 05/14 when patient sustained fall while ambulating in his room. His coumadin dose had not been administered and his INR on AM labs was 1.4. AT Approximately 10:55am Pt fell onto right hip walking to closet for his clothes. STAT right hip x-ray ordered and d/c home cancelled. Miriam Wolff notified of fall and change in discharge plans. HPI: This is a 79 y/o male with a PMHx of CHF, HTN, Afib (on Coumadin), chronic leg wounds, frequent falls. Who present to the ED for s/p fall. Patient states he fell out of bed this evening he was on the floor for a few hours, and could not get up. He reports hitting his head and lip, he denies LOC. Patient reports that he has a walker that he does not use. He denies fever, chills, cough, SOB, dizziness, WANG, CP, palpitations, AP, N/V/D, melena, hematochezia, dysuria. Patient denies sick contacts or recent travel. - Current Medication List Current Medications: Active Medications Acetaminophen (Tylenol -) 650 mg PO Q6H PRN PRN Reason: PAIN LEVEL 4 - 6 Allopurinol (Zyloprim -) 300 mg PO DAILY [facility] Last Admin: 05/14/20 09:34 Dose: 300 mg Documented by: Carvedilol (Coreg -) 25 mg PO BID [facility] Last Admin: 05/14/20 09:35 Dose: Not Given Documented by: Diltiazem HCl (Cardizem Cd -) 120 mg PO DAILY [facility] Last Admin: 05/14/20 09:34 Dose: 120 mg Documented by: Docusate Sodium (Colace -) 100 mg PO BID [facility] Last Admin: 05/14/20 09:34 Dose: 100 mg Documented by: Dutasteride (Avodart -) 0.5 mg PO DAILY [facility] Last Admin: 05/14/20 09:35 Dose: 0.5 mg Documented by: Magnesium Oxide (Mag-Ox -) 400 mg PO DAILY [facility] Last Admin: 05/14/20 09:35 Dose: 400 mg Documented by: Magnesium Sulfate/Dextrose (Magnesium 1gm/D5w -) 1 gm IVPB ONCE ONE Stop: 05/14/20 12:01 Last Admin: 05/14/20 11:09 Dose: 1 gm Documented by: Paricalcitol (Zemplar -) 1 mcg PO Q2D [facility] Potassium Chloride (K-Dur -) 20 meq PO BID [facility] Last Admin: 05/14/20 09:34 Dose: 20 meq Documented by: Senna (Senna -) 2 tab PO HS [facility] Last Admin: 05/13/20 21:37 Dose: 2 tab Documented by: Torsemide (Demadex -) 40 mg PO DAILY@1000 JOHN Last Admin: 05/14/20 09:35 Dose: 40 mg Documented by: Torsemide (Demadex -) 20 mg PO DAILY@1800 JOHN Last Admin: 05/13/20 18:22 Dose: 20 mg Documented by: Warfarin Sodium (Coumadin -) 5 mg PO DAILY@1800 JOHN - Objective Vital Signs: Vital Signs Temperature 98.2 F 05/14/20 06:00 Pulse Rate 69 05/14/20 06:00 Respiratory Rate 20 05/14/20 06:00 Blood Pressure 163/78 05/14/20 06:00 O2 Sat by Pulse Oximetry (%) 100 05/14/20 06:00 Constitutional: Yes: Calm, Obese HENT: Yes: Other (+ right orbital ecchymosis and lip swelling/bruising) Neck: Yes: Supple Cardiovascular: Yes: Pulse Irregular Respiratory: Yes: CTA Bilaterally Gastrointestinal: Yes: Soft, Abdomen, Obese Musculoskeletal: Yes: Joint Stiffness, Muscle Weakness Edema: Yes Edema: LLE: Trace, RLE: Trace Peripheral Pulses WNL: Yes Peripheral Pulses: Left Radial: 2+, Right Radial: 2+, Left Doralis Pedis: 1+, Right Dorsalis Pedis: 1+ Integumentary: Yes: Venous Stasis Changes (b/l LEs) Wound/Incision: Yes: Clean/Dry Neurological: Yes: Alert, Oriented, Unsteady Gait, Weakness ...Motor Strength: LLE (4/5), RLE (4/5) Psychiatric: Yes: Alert, Oriented Labs: CBC, BMP 05/14/20 07:05 05/14/20 07:05 INR, PTT INR 1.41 (0.82-1.09) H 05/14/20 07:05 Procedures: Principal: Facial Bones CT 05/12/2020. Impression: No fracture is identified. Reported By: Maikel Gutierrez MD 05/12/20 [address]. . Head CT 05/12/2020. Impression: No CT evidence of acute intracranial pathology. Note is again made of mild to moderate ventricular dilatation probably due to central atrophy. Correlate clinically in regards to the possibility of normal pressure hydrocephalus. Mild periventricular chronic microvascular ischemic changes are seen. There has been no definite interval change in comparison to a prior CT exam of 12/29/2019.Reported By: Maikel Gutierrez MD 05/12/[address] cervical spine 05/12/2020. Impression: Limited exam as described above. No obvious acute fracture is noted. Marked C2-C3 degenerative central canal stenosis is seen with corresponding spinal cord impingement. Reported By: Maikel Gutierrez MD 05/12/[address] . Head CT 05/13/2020. IMPRESSION: No significant interval change or CT evidence of acute intracranial pathology is identified. Reported By: Shukri Paez MD 05/13/20 6799. Other Procedures: EKG 05/12/2020. Afib 86bpm. Urine Culture 05/13/2020 - No growth. COVID -19 screen - Not detected Problem List - Problems (1) BPH (benign prostatic hyperplasia) Assessment/Plan: continue avodart Code(s): N40.0 - BENIGN PROSTATIC HYPERPLASIA WITHOUT LOWER URINRY TRACT SYMP (2) DVT prophylaxis Assessment/Plan: OOB to chair daily Problems reviewed: Yes Code(s): Z29.9 - ENCOUNTER FOR PROPHYLACTIC MEASURES, UNSPECIFIED (3) A-fib Assessment/Plan: hold coumadin due fall onto right hip continue palma babin tele Code(s): I48.91 - UNSPECIFIED ATRIAL FIBRILLATION Qualifiers: Atrial fibrillation type: longstanding persistent Qualified Code(s): I48.11 - Longstanding persistent atrial fibrillation (4) CHF (congestive heart failure) Assessment/Plan: torsemide 40mg qaM and 20mg qpm hold metolazone which is BIW daily weights replete electrolytes PRN Code(s): I50.9 - HEART FAILURE, UNSPECIFIED Qualifiers: Heart failure type: diastolic Heart failure chronicity: chronic Qualified Code(s): I50.32 - Chronic diastolic (congestive) heart failure (5) Gait disorder Assessment/Plan: PT daily Short term rehab recommended fall precautions, bed alarm Problems reviewed: Yes Code(s): R26.9 - UNSPECIFIED ABNORMALITIES OF GAIT AND MOBILITY (6) HTN (hypertension) Assessment/Plan: coreg 25mg BID cardiac diet Problems reviewed: Yes Code(s): I10 - ESSENTIAL (PRIMARY) HYPERTENSION Qualifiers: Hypertension type: essential hypertension Qualified Code(s): I10 - Essential (primary) hypertension (7) Falls frequently Assessment/Plan: will restart coumadin after monitoring patient for another 24hrs post fall onto right hip assist with ADLs Problems reviewed: Yes Code(s): R29.6 - REPEATED FALLS Impression/Plan Impression/Plan: Dispo: Pt requires discharge to SNF/Short term rehab due to unsteady gait and frequent falls Code status: Full Visit type - Emergency Visit Emergency Visit: Yes ED Registration Date: 05/12/20 Care time: The patient presented to the Emergency Department on the above date and was hospitalized for further evaluation of their emergent condition. - New Patient This patient is new to me today: No - Critical Care Critical Care patient: No - Discharge Referral Referred to [facility] No - Medication Review Med list reviewed for High Risk Meds patients 65 and older: Yes
[2020-05-14] MEDS ORDERED: MAGNESIUM 1GM/D5W 100ML - 100 ML IVPB IVPB ONE (12:00)
[2020-05-14] MEDS ORDERED: WARFARIN NA 5 MG TABLET PO SCH (18:00)
[2020-05-14] MEDS: SENNOSIDES 8.6MG TABLET (FP) PO SCH (21:55)
[2020-05-15 08:41] LABS: ALBUMIN 3.2 g/dl (3.4-5.0); BILIRUBIN,TOTAL 1.1 mg/dl (0.2-1); CREATININE 1.3 mg/dl (0.55-1.3); MAGNESIUM 1.7 mg/dL (1.8-2.4); TOT PROT 5.7 g/dl (6.4-8.2)
[2020-05-15 08:53] LABS: ACTIVATED PTT 29.9 SECONDS (25.2-36.5)
[2020-05-15 08:58] LABS: INR 1.3 (0.82-1.09); PROTHROMBIN TIME (PATIENT) 14.5 SEC (10.2-13.0)
[2020-05-15 09:07] LABS: BASO % 0.9 % (0-2.0); EOS % 3.1 % (0-4.5); HEMATOCRIT 35.5 % (35.4-49); HEMOGLOBIN 11.5 GM/dl (11.7-16.9); LYMPH % 19.2 % (8-40); MCH 30.8 pg (25.7-33.7); MCHC 32.4 g/dl (32.0-35.9); MEAN CELL VOLUME 95.1 fl (80-96); MEAN PLT VOLUME 8.4 fl (7.5-11.1); MONO % 12.5 % (3.8-10.2); NEUT % 64.3 % (42.8-82.8); PLATELET COUNT 112 K/MM3 (134-434); RBC 3.73 M/mm3 (4.00-5.60); RDW 14.2 % (11.9-15.9); WHITE BLOOD COUNT 5.5 K/mm3 (4.0-10.8)
[2020-05-15] MEDS: MAGNESIUM OXIDE 400 MG TABLET (FP) PO SCH (09:54)
[2020-05-15] MEDS: POTASSIUM CHLORIDE TABS 20 MEQ TABLET.ER (FP) PO SCH ×2 (09:55→21:03)
[2020-05-15] MEDS: DUTASTERIDE 0.5 MG CAP (FP) PO SCH (09:55)
[2020-05-15] MEDS: CARVEDILOL 25 MG TABLET (FP) PO SCH ×2 (09:55→21:04)
[2020-05-15] MEDS: DOCUSATE SODIUM 100 MG CAPSULE (FP) PO SCH ×2 (09:55→21:03)
[2020-05-15] MEDS: ALLOPURINOL 300 MG TABLET (FP) PO SCH (09:56)
[2020-05-15] MEDS: TORSEMIDE 20 MG TABLET (FP) PO SCH ×2 (09:56→17:08)
[2020-05-15] MEDS: PARICALCITOL 1 MCG CAP PO SCH (09:57)
--- NOTE | 2020-05-15 11:14 | DS ---
Physical Exam: SUBJECTIVE: Patient seen and examined, pt sitting in chair, NAD, bruising noted on right side of face. no bleeding overnight pt declining rehab, pt insisting to be discharged home today, spoke to and visiting nurse, Allie pt is not on coumadin, was stopped 2 months ago, pt is on eliquis 5mg BID. Allie reports pt has hx on non- compliance, does not use assistive devices at home when walking. pt d/c from home PT due to non-compliance. discussed with pt, pt refusing rehab, pt will be d/c AMA. risks explained and pt verbalizes understanding. OBJECTIVE: Vital Signs Period Temp Pulse Resp BP Sys/Maldonado Pulse Ox Last 24 Hr 97.4 F-98.7 F 56-83 16-19 114-151/67-90 94-99 PHYSICAL EXAM GENERAL: The patient is awake, alert, and fully oriented, in no acute distress. HEAD: Normal with no signs of trauma. EYES: PERRL, extraocular movements intact, sclera anicteric, conjunctiva clear. ENT: Ears normal, nares patent, oropharynx clear without exudates, moist mucous membranes. NECK: Trachea midline, full range of motion, supple. LUNGS: Breath sounds equal, clear to auscultation bilaterally, no wheezes, no crackles, no accessory muscle use. HEART: Regular rate and rhythm, S1, S2 without murmur, rub or gallop. ABDOMEN: Soft, nontender, nondistended, normoactive bowel sounds, no guarding, no rebound, no hepatosplenomegaly, no masses. EXTREMITIES: 2+ pulses, warm, well-perfused, no edema. NEUROLOGICAL: Cranial nerves II through XII grossly intact. Normal speech, gait not observed. PSYCH: Normal mood, normal affect. SKIN: bruising on right side of forhead, chin, neck, right hip Warm, dry, normal turgor, no rashes or lesions noted. LABS Laboratory Results - last 24 hr 05/15/20 05/15/20 05/15/20 07:20 07:20 07:20 WBC 5.5 RBC 3.73 L Hgb 11.5 L Hct 35.5 MCV 95.1 MCH 30.8 MCHC 32.4 RDW 14.2 Plt Count 112 L MPV 8.4 Absolute Neuts (auto) 3.5 Neutrophils % 64.3 Lymphocytes % 19.2 Monocytes % 12.5 H Eosinophils % 3.1 Basophils % 0.9 PT with INR 14.5 H INR 1.30 H PTT (Actin FS) 29.9 Sodium 139 Potassium 3.0 L Chloride 98 Carbon Dioxide 30 Anion Gap 11 BUN 36.0 H Creatinine 1.3 Est GFR (CKD-EPI)AfAm 59.73 Est GFR (CKD-EPI)NonAf 51.53 Random Glucose 114 H Calcium 9.0 Magnesium 1.7 L Total Bilirubin 1.1 H AST 17 ALT 14 Alkaline Phosphatase 80 Total Protein 5.7 L Albumin 3.2 L 05/15/20 07:20 WBC RBC Hgb Hct MCV MCH MCHC RDW Plt Count MPV Absolute Neuts (auto) Neutrophils % Lymphocytes % Monocytes % Eosinophils % Basophils % PT with INR INR PTT (Actin FS) Sodium Potassium Chloride Carbon Dioxide Anion Gap BUN Creatinine Est GFR (CKD-EPI)AfAm Est GFR (CKD-EPI)NonAf Random Glucose Calcium Magnesium 1.7 L Total Bilirubin AST ALT Alkaline Phosphatase Total Protein Albumin HOSPITAL COURSE: Date of Admission:05/12/20 Date of Discharge: 05/15/20 This is a 79 y/o male with a PMHx of CHF, HTN, Afib (on Coumadin), chronic leg wounds, frequent falls. Who present to the ED for s/p fall. Patient states he fell out of bed this evening he was on the floor for a few hours, and could not get up. He reports hitting his head and lip, he denies LOC. Patient reports that he has a walker that he does not use. patient was for discharge 05/14, pt fell in room near closet, pt did not use walker to help ambulate, discussed with patient about going to short term rehab, pt refusing and states "I will be more careful at home." call and spoke to , who also tried to talk to pt into going to rehab. informed that pt is not on coumadin, pt is on eliquis. started two months ago. confirmed with visiting nurse today. ER course was notable for: (1) Head CT- neg ICH x 2 (2) Facial Bones CT- neg fx (3) C- Spine CT- neg fx (4) xray Right hip- neg You were admitted for observation with repeat head CT 36hrs later. Repeat head CT was negtive on the afternoon of 05/13on eliquis restarted on the morning of 05/14. Your INR was 1.3 on 05/15, please follow up with your metal sash setter or PCP On admission your creatinine was slightly elevated at 1.6, your were gently fluid resuscitated with Creatinine downtrending to 1.3. Your potassium and Magnesium were replaced on a daily basis due to significantly low levels. Health Concerns: hypokalemia - your potassium was persistently low during your hospital course which required aggressive supplementation. As per your pharmacist, you take potassium 20meq twice daily, please increase to 40meq in the morning and 20meq in the afternoon. Unsteady gait/ frequent falls while on anticoagulation -physical therapy recommended short rehabilitation, which you refused. The risk associated with falls while on anticoagulation were reviewed with you. you refused short term rehab placement and opted for home PT provided through the [facility]. Goals: Fall prevention: Simple tips to prevent falls Falls put you at risk of serious injury. Prevent falls with these simple fall- prevention measures, from reviewing your medications to hazard-proofing your home. 1. Make an appointment with your doctor Begin your fall-prevention plan by making an appointment with your doctor. Be prepared to answer questions such as: What medications are you taking? Make a list of your prescription and cjzv-xcy-ntetjdt medications and supplements, or bring them with you to the appointment. Your doctor can review your medications for side effects and interactions that may increase your risk of falling. To help with fall prevention, your doctor may consider weaning you off medications that make you tired or affect your thinking, such as sedatives and some types of antidepressants. Have you fallen before? Write down the details, including when, where and how y ou fell. Be prepared to discuss instances when you almost fell but were caught by someone or managed to grab hold of something just in time. Details such as these may help your doctor identify specific fall-prevention strategies. Could your health conditions cause a fall? Certain eye and ear disorders may increase your risk of falls. Be prepared to discuss your health conditions and how comfortable you are when you walk for example, do you feel any dizziness, joint pain, shortness of breath, or numbness in your feet and legs when you walk? Your doctor may evaluate your muscle strength, balance and walking style (gait) as well. 2. Keep moving Physical activity can go a long way toward fall prevention. With your doctor's OK, consider activities such as walking, water workouts or bushra chi a gentle exercise that involves slow and graceful dance-like movements. Such activities reduce the risk of falls by improving strength, balance, coordination and flexibility. If you avoid physical activity because you're afraid it will make a fall more likely, tell your doctor. He or she may recommend carefully monitored exercise programs or refer you to a physical therapist. The physical therapist can create a custom exercise program aimed at improving your balance, flexibility, muscle strength and gait. 3. Wear sensible shoes Consider changing your footwear as part of your fall-prevention plan. High heels, floppy slippers and shoes with slick soles can make you slip, stumble and fall. So can walking in your stocking feet. Instead, wear properly fitting, sturdy shoes with nonskid soles. Sensible shoes may also reduce joint pain. 4. Remove home hazards Take a look around your home. Your living room, kitchen, bedroom, bathroom, hallways and stairways may be filled with hazards. To make your home safer: Remove boxes, newspapers, electrical cords and phone cords from walkways. Move coffee tables, magazine racks and plant stands from high-traffic areas. Secure loose rugs with double-faced tape, tacks or a slip-resistant backing or remove loose rugs from your home. Repair loose, wooden floorboards and carpeting right away. Store clothing, dishes, food and other necessities within easy reach. Immediately clean spilled liquids, grease or food. Use nonslip mats in your bathtub or shower. Use a bath seat, which allows you to sit while showering. 5. Light up your living space Keep your home brightly lit to avoid tripping on objects that are hard to see. Also: Place night lights in your bedroom, bathroom and hallways. Place a lamp within reach of your bed for fkzhbt-oc-jnw-night needs. Make clear paths to light switches that aren't near room entrances. Consider trading traditional switches for fdhh-gl-vqd-dark or illuminated switches. Turn on the lights before going up or down stairs. Store flashlights in pkwo-oz-ylmh places in case of power outages. 6. Use assistive devices Your doctor might recommend using a cane or walker to keep you steady. Other assistive devices can help, too. For example: Hand rails for both sides of stairways Nonslip treads for bare-wood steps A raised toilet seat or one with armrests Grab bars for the shower or tub A sturdy plastic seat for the shower or tub plus a hand-held shower nozzle for bathing while sitting down If necessary, ask your doctor for a referral to an occupational therapist. He or she can help you brainstorm other fall-prevention strategies. Some solutions are easily installed and relatively inexpensive. Others may require professional help or a larger investment. If you're concerned about the cost, remember that an investment in fall prevention is an investment in your independence. Condition: Guarded Minutes to complete discharge: 30 Discharge Summary Problems reviewed: Yes Reason For Visit: ACUTE KIDNEY INJURY, GAIT DISORDER. Current Active Problems A-fib (Acute) COLIN (acute kidney injury) (Acute) BPH (benign prostatic hyperplasia) (Acute) CHF (congestive heart failure) (Acute) DVT prophylaxis (Acute) Encounter for screening laboratory testing for COVID-19 virus (Acute) Gait disorder (Acute) HTN (hypertension) (Acute) Supratherapeutic INR (Acute) Hospital Course: This is a 79 y/o male with a PMHx of CHF, HTN, Afib (on Coumadin), chronic leg wounds, frequent falls. Who present to the ED for s/p fall. Patient states he f ell out of bed this evening he was on the floor for a few hours, and could not get up. He reports hitting his head and lip, he denies LOC. Patient reports that he has a walker that he does not use. He denies fever, chills, cough, SOB, dizziness, WANG, CP, palpitations, AP, N/V/D, melena, hematochezia, dysuria. Patient denies sick contacts or recent travel. ER course was notable for: (1) Head CT- neg ICH (2) Facial Bones CT- neg fx (3) C- Spine CT- neg fx You were admitted for observation with repeat head CT 36hrs later. Repeat head CT was negtive on the afternoon of 05/13 and coumadin restarted on the morning of 05/14. Your INR was 1.41 on 05/14, please follow up with your metal sash setter or PCP for repeat INR testing within 5days to determine if coumadin levels are within therapeutic range. On admission your creatinine was slightly elevated at 1.6, your were gently fluid resuscitated with Creatinine downtrending to 1.3. Your potassium and Magnesium were replaced on a daily basis due to significantly low levels. Health Concerns: hypokalemia - your potassium was persistently low during your hospital course which required aggressive supplementation. As per your pharmacist, you take potassium 20meq twice daily, please increase to 40meq in the morning and 20meq in the afternoon. Unsteady gait/ frequent falls while on anticoagulation -physical therapy recommended short rehabilitation, which you refused. The risk associated with falls while on anticoagulation were reviewed with you. you refused short term rehab placement and opted for home PT provided through the [facility]. Goals: Fall prevention: Simple tips to prevent falls Falls put you at risk of serious injury. Prevent falls with these simple fall- prevention measures, from reviewing your medications to hazard-proofing your home. 1. Make an appointment with your doctor Begin your fall-prevention plan by making an appointment with your doctor. Be prepared to answer questions such as: What medications are you taking? Make a list of your prescription and gfdj-kxf-rdlhrgh medications and supplements, or bring them with you to the appointment. Your doctor can review your medications for side effects and interactions that may increase your risk of falling. To help with fall prevention, your doctor may consider weaning you off medications that make you tired or affect your thinking, such as sedatives and some types of antidepressants. Have you fallen before? Write down the details, including when, where and how you fell. Be prepared to discuss instances when you almost fell but were caught by someone or managed to grab hold of something just in time. Details such as these may help your doctor identify specific fall-prevention strategies. Could your health conditions cause a fall? Certain eye and ear disorders may increase your risk of falls. Be prepared to discuss your health conditions and how comfortable you are when you walk for example, do you feel any dizziness, joint pain, shortness of breath, or numbness in your feet and legs when you walk? Your doctor may evaluate your muscle strength, balance and walking style (gait) as well. 2. Keep moving Physical activity can go a long way toward fall prevention. With your doctor's OK, consider activities such as walking, water workouts or bushra chi a gentle exercise that involves slow and graceful dance-like movements. Such activities reduce the risk of falls by improving strength, balance, coordination and flexibility. If you avoid physical activity because you're afraid it will make a fall more likely, tell your doctor. He or she may recommend carefully monitored exercise programs or refer you to a physical therapist. The physical therapist can create a custom exercise program aimed at improving your balance, flexibility, muscle strength and gait. 3. Wear sensible shoes Consider changing your footwear as part of your fall-prevention plan. High heels, floppy slippers and shoes with slick soles can make you slip, stumble and fall. So can walking in your stocking feet. Instead, wear properly fitting, sturdy shoes with nonskid soles. Sensible shoes may also reduce joint pain. 4. Remove home hazards Take a look around your home. Your living room, kitchen, bedroom, bathroom, hallways and stairways may be filled with hazards. To make your home safer: Remove boxes, newspapers, electrical cords and phone cords from walkways. Move coffee tables, magazine racks and plant stands from high-traffic areas. Secure loose rugs with double-faced tape, tacks or a slip-resistant backing or remove loose rugs from your home. Repair loose, wooden floorboards and carpeting right away. Store clothing, dishes, food and other necessities within easy reach. Immediately clean spilled liquids, grease or food. Use nonslip mats in your bathtub or shower. Use a bath seat, which allows you to sit while showering. 5. Light up your living space Keep your home brightly lit to avoid tripping on objects that are hard to see. Also: Place night lights in your bedroom, bathroom and hallways. Place a lamp within reach of your bed for blyeni-vi-gxh-night needs. Make clear paths to light switches that aren't near room entrances. Consider trading traditional switches for cnhd-wn-mqq-dark or illuminated switches. Turn on the lights before going up or down stairs. Store flashlights in unol-be-ncnc places in case of power outages. 6. Use assistive devices Your doctor might recommend using a cane or walker to keep you steady. Other assistive devices can help, too. For example: Hand rails for both sides of stairways Nonslip treads for bare-wood steps A raised toilet seat or one with armrests Grab bars for the shower or tub A sturdy plastic seat for the shower or tub plus a hand-held shower nozzle for bathing while sitting down If necessary, ask your doctor for a referral to an occupational therapist. He or she can help you brainstorm other fall-prevention strategies. Some solutions are easily installed and relatively inexpensive. Others may require professional help or a larger investment. If you're concerned about the cost, remember that an investment in fall prevention is an investment in your independence. - Instructions Diet, Activity, Other Instructions: Please call Dr. Jeet Smiley (metal sash setter) for follow up appointment to check INR Address: [address] [place] [id number] Please call PCP Dr. Pavel West for follow up after your most recent fall. [facility] [address], [id number] other locations You will be scheduled to have a [facility] evaluation after discharge. At this appointment, you may receive a referral for home physical therapy. Disposition: AGAINST MEDICAL ADVICE - Home Medications Comprehensive Discharge Medication List: Ambulatory Orders Allopurinol 300 mg PO DAILY 12/29/19 Diltiazem HCl [Cartia Xt] 120 mg PO DAILY 12/29/19 Dutasteride 0.5 mg PO DAILY 12/29/19 Linagliptin [Tradjenta] 5 mg PO DAILY 12/29/19 Magnesium 500 mg PO DAILY 12/29/19 Metolazone 2.5 mg PO WEEKLY 12/29/19 Paricalcitol 1 mcg PO Q2D 12/29/19 Potassium Chloride 20 meq PO BID 12/29/19 Carvedilol [Coreg -] 25 mg PO BID 05/13/20 Carvedilol [Coreg -] 25 mg PO BID tablet 05/14/20 Torsemide [Demadex -] 20 mg PO DAILY@1800 tablet 05/14/20 Torsemide [Demadex -] 40 mg PO DAILY@1000 tablet 05/14/20 Apixaban [Eliquis] 5 mg PO BID #60 tablet 05/15/20 This patient is new to me today: Yes Date on this admission: 05/15/20 Emergency Visit: Yes ED Registration Date: 05/12/20 Care time: The patient presented to the Emergency Department on the above date and was hospitalized for further evaluation of their emergent condition. Critical Care patient: No - Discharge Referral Referred to [facility] Med P.C.: No
--- NOTE | 2020-05-15 14:51 | PN ---
Physical Exam: SUBJECTIVE: Patient seen and examined, pt was to sign out AMA this afternoon,pt refused rehab when discussed yesterday and this morning, pt now in agreement for Rehab. discharge cancelled will restart patient on eliquis tonight OBJECTIVE: Vital Signs Period Temp Pulse Resp BP Sys/Maldonado Pulse Ox Last 24 Hr 97.4 F-98.8 F 56-83 16-19 117-151/67-90 94-99 GENERAL: The patient is awake, alert, and fully oriented, in no acute distress. HEAD: Normal with no signs of trauma. EYES: PERRL, extraocular movements intact, sclera anicteric, conjunctiva clear. No ptosis. ENT: Ears normal, nares patent, oropharynx clear without exudates, moist mucous membranes. NECK: Trachea midline, full range of motion, supple. LUNGS: Breath sounds equal, clear to auscultation bilaterally, no wheezes, no crackles, no accessory muscle use. HEART: Regular rate and rhythm, S1, S2 without murmur, rub or gallop. ABDOMEN: Soft, nontender, nondistended, normoactive bowel sounds, no guarding, no rebound, no hepatosplenomegaly, no masses. EXTREMITIES: 2+ pulses, warm, well-perfused, no edema. NEUROLOGICAL: Cranial nerves II through XII grossly intact. Normal speech, gait not observed. PSYCH: Normal mood, normal affect. SKIN: Warm, dry, normal turgor, no rashes or lesions noted Laboratory Results - last 24 hr 05/15/20 05/15/20 05/15/20 07:20 07:20 07:20 WBC 5.5 RBC 3.73 L Hgb 11.5 L Hct 35.5 MCV 95.1 MCH 30.8 MCHC 32.4 RDW 14.2 Plt Count 112 L MPV 8.4 Absolute Neuts (auto) 3.5 Neutrophils % 64.3 Lymphocytes % 19.2 Monocytes % 12.5 H Eosinophils % 3.1 Basophils % 0.9 PT with INR 14.5 H INR 1.30 H PTT (Actin FS) 29.9 Sodium 139 Potassium 3.0 L Chloride 98 Carbon Dioxide 30 Anion Gap 11 BUN 36.0 H Creatinine 1.3 Est GFR (CKD-EPI)AfAm 59.73 Est GFR (CKD-EPI)NonAf 51.53 Random Glucose 114 H Calcium 9.0 Magnesium 1.7 L Total Bilirubin 1.1 H AST 17 ALT 14 Alkaline Phosphatase 80 Total Protein 5.7 L Albumin 3.2 L 05/15/20 07:20 WBC RBC Hgb Hct MCV MCH MCHC RDW Plt Count MPV Absolute Neuts (auto) Neutrophils % Lymphocytes % Monocytes % Eosinophils % Basophils % PT with INR INR PTT (Actin FS) Sodium Potassium Chloride Carbon Dioxide Anion Gap BUN Creatinine Est GFR (CKD-EPI)AfAm Est GFR (CKD-EPI)NonAf Random Glucose Calcium Magnesium 1.7 L Total Bilirubin AST ALT Alkaline Phosphatase Total Protein Albumin Active Medications Generic Name Dose Route Start Last Admin Trade Name Freq PRN Reason Stop Dose Admin Acetaminophen 650 mg 05/13/20 15:34 Tylenol - PO Q6H PRN PAIN LEVEL 4 - 6 Allopurinol 300 mg 05/13/20 10:00 05/15/20 09:56 Zyloprim - PO 300 mg DAILY JOHN Administration Carvedilol 25 mg 05/13/20 22:00 05/15/20 09:55 Coreg - PO 25 mg BID JOHN Administration Diltiazem HCl 120 mg 05/13/20 10:00 05/15/20 09:55 Cardizem Cd - PO 120 mg DAILY JOHN Administration Docusate Sodium 100 mg 05/13/20 22:00 05/15/20 09:55 Colace - PO 100 mg BID JOHN Administration Dutasteride 0.5 mg 05/13/20 10:00 05/15/20 09:55 Avodart - PO 0.5 mg DAILY JOHN Administration Magnesium Oxide 400 mg 05/14/20 10:00 05/15/20 09:54 Mag-Ox - PO 400 mg DAILY JOHN Administration Paricalcitol 1 mcg 05/15/20 10:00 05/15/20 09:57 Zemplar - PO 1 mcg Q2D JOHN Administration Potassium Chloride 20 meq 05/14/20 10:00 05/15/20 09:55 K-Dur - PO 20 meq BID JOHN Administration Senna 2 tab 05/13/20 22:00 05/14/20 21:55 Senna - PO 2 tab HS JOHN Administration Torsemide 40 mg 05/14/20 10:00 05/15/20 09:56 Demadex - PO 40 mg DAILY@1000 JOHN Administration Torsemide 20 mg 05/13/20 18:00 05/14/20 18:42 Demadex - PO 20 mg DAILY@1800 JOHN Administration ASSESSMENT/PLAN: pt is a 79 y/o male with a PMHx of CHF, HTN, Afib (on Coumadin), chronic leg wounds, frequent falls. # Falls frequently Assessment/Plan: -fall precautions -repeat CT head neg x 2 -Xray hip no acute fx -will require rehab,pt in agreement Problems reviewed: Yes Code(s): R29.6 - REPEATED FALLS #BPH (benign prostatic hyperplasia) Assessment/Plan: continue avodart Code(s): N40.0 - BENIGN PROSTATIC HYPERPLASIA WITHOUT LOWER URINRY TRACT SYMP # DVT prophylaxis Assessment/Plan: OOB to chair daily -restart eliquis tonight Problems reviewed: Yes Code(s): Z29.9 - ENCOUNTER FOR PROPHYLACTIC MEASURES, UNSPECIFIED # A-fib Assessment/Plan: hold coumadin due fall onto right hip continue coreg, cardizem continuous tele Code(s): I48.91 - UNSPECIFIED ATRIAL FIBRILLATION Qualifiers: Atrial fibrillation type: longstanding persistent Qualified Code(s): I48.11 - Longstanding persistent atrial fibrillation # CHF (congestive heart failure) Assessment/Plan: torsemide 40mg qaM and 20mg qpm hold metolazone which is BIW daily weights replete electrolytes PRN Code(s): I50.9 - HEART FAILURE, UNSPECIFIED Qualifiers: Heart failure type: diastolic Heart failure chronicity: chronic Qualified Code(s): I50.32 - Chronic diastolic (congestive) heart failure # Gait disorder Assessment/Plan: PT daily Short term rehab recommended fall precautions, bed alarm Problems reviewed: Yes Code(s): R26.9 - UNSPECIFIED ABNORMALITIES OF GAIT AND MOBILITY # HTN (hypertension) Assessment/Plan: coreg 25mg BID cardiac diet Problems reviewed: Yes Code(s): I10 - ESSENTIAL (PRIMARY) HYPERTENSION Qualifiers: Hypertension type: essential hypertension Qualified Code(s): I10 - Essential (primary) hypertension Impression/Plan Impression/Plan: Dispo: Pt requires discharge to SNF/Short term rehab due to unsteady gait and frequent falls Visit type - Emergency Visit Emergency Visit: Yes ED Registration Date: 05/12/20 Care time: The patient presented to the Emergency Department on the above date and was hospitalized for further evaluation of their emergent condition. - New Patient This patient is new to me today: Yes Date on this admission: 05/15/20 - Critical Care Critical Care patient: No - Discharge Referral Referred to [facility] Med P.C.: No - Medication Review Med list reviewed for High Risk Meds patients 65 and older: Yes
[2020-05-15] MEDS: SENNOSIDES 8.6MG TABLET (FP) PO SCH (21:04)
[2020-05-15] MEDS: APIXABAN 5 MG TABLET PO SCH (21:04)
[2020-05-16 08:16] LABS: BASO % 0.6 % (0-2.0); HEMATOCRIT 36.6 % (35.4-49); HEMOGLOBIN 11.5 GM/dl (11.7-16.9); LYMPH % 18.5 % (8-40); MCH 29.8 pg (25.7-33.7); MCHC 31.5 g/dl (32.0-35.9); MEAN CELL VOLUME 94.5 fl (80-96); MEAN PLT VOLUME 8.4 fl (7.5-11.1); NEUT % 64.9 % (42.8-82.8); PLATELET COUNT 117 K/MM3 (134-434); RBC 3.87 M/mm3 (4.00-5.60); RDW 14.5 % (11.9-15.9)
[2020-05-16 08:27] LABS: INR 1.41 (0.82-1.09); PROTHROMBIN TIME (PATIENT) 15.7 SEC (10.2-13.0)
[2020-05-16 08:43] LABS: ALBUMIN 3.2 g/dl (3.4-5.0); CREATININE 1.2 mg/dl (0.55-1.3); MAGNESIUM 1.5 mg/dL (1.8-2.4); TOT PROT 5.7 g/dl (6.4-8.2)
--- NOTE | 2020-05-16 09:48 | PN ---
Physical Exam: SUBJECTIVE: Patient seen and examined, NAD ecchymosis healing, restarted on eliquis pt pending d/c to rehab will need to follow up with pt's cardio, risk and benefits of continuing NOAC with frequent falls. OBJECTIVE: Vital Signs Period Temp Pulse Resp BP Sys/[place] Pulse Ox Last 24 Hr 98.0 F-98.8 F 59-98 18-18 116-136/51-86 94-98 GENERAL: The patient is awake, alert, and fully oriented, in no acute distress. HEAD: Normal with no signs of trauma. EYES: PERRL, extraocular movements intact, sclera anicteric, conjunctiva clear. No ptosis. ENT: Ears normal, nares patent, oropharynx clear without exudates, moist mucous membranes. NECK: Trachea midline, full range of motion, supple. LUNGS: Breath sounds equal, clear to auscultation bilaterally, no wheezes, no crackles, no accessory muscle use. HEART: Regular rate and rhythm, S1, S2 without murmur, rub or gallop. ABDOMEN: Soft, nontender, nondistended, normoactive bowel sounds, no guarding, no rebound, no hepatosplenomegaly, no masses. EXTREMITIES: 2+ pulses, warm, well-perfused, no edema. NEUROLOGICAL: Cranial nerves II through XII grossly intact. Normal speech, gait not observed. PSYCH: Normal mood, normal affect. SKIN: Warm, dry, normal turgor, no rashes or lesions noted Laboratory Results - last 24 hr 05/16/20 05/16/20 05/16/20 06:00 08:04 08:21 WBC 6.0 RBC 3.87 L Hgb 11.5 L Hct 36.6 MCV 94.5 MCH 29.8 MCHC 31.5 L RDW 14.5 Plt Count 117 L MPV 8.4 Absolute Neuts (auto) 3.9 Neutrophils % 64.9 Lymphocytes % 18.5 Monocytes % 13.0 H Eosinophils % 3.0 Basophils % 0.6 PT with INR 15.7 H INR 1.41 H Sodium 137 Potassium 3.0 L Chloride 96 L Carbon Dioxide 30 Anion Gap 11 BUN 37.0 H Creatinine 1.2 Est GFR (CKD-EPI)AfAm 65.79 Est GFR (CKD-EPI)NonAf 56.77 Random Glucose 106 Calcium 9.0 Magnesium 1.5 L Total Bilirubin 1.0 AST 16 ALT 12 L Alkaline Phosphatase 83 Total Protein 5.7 L Albumin 3.2 L Active Medications Generic Name Dose Route Start Last Admin Trade Name Britney PRN Reason Stop Dose Admin Acetaminophen 650 mg 05/13/20 15:34 Tylenol - PO Q6H PRN PAIN LEVEL 4 - 6 Allopurinol 300 mg 05/13/20 10:00 05/15/20 09:56 Zyloprim - PO 300 mg DAILY JOHN Administration Apixaban 5 mg 05/15/20 22:00 05/15/20 21:04 Eliquis - PO 5 mg BID JOHN Administration Carvedilol 25 mg 05/13/20 22:00 05/15/20 21:04 Coreg - PO 25 mg BID JOHN Administration Diltiazem HCl 120 mg 05/13/20 10:00 05/15/20 09:55 Cardizem Cd - PO 120 mg DAILY JOHN Administration Docusate Sodium 100 mg 05/13/20 22:00 05/15/20 21:03 Colace - PO 100 mg BID JOHN Administration Dutasteride 0.5 mg 05/13/20 10:00 05/15/20 09:55 Avodart - PO 0.5 mg DAILY JOHN Administration Magnesium Oxide 400 mg 05/14/20 10:00 05/15/20 09:54 Mag-Ox - PO 400 mg DAILY JOHN Administration Magnesium Sulfate 2 gm 05/16/20 09:50 Magnesium Sulf 2 G/50 Ml Bag IVPB 05/16/20 09:51 ONCE ONE Paricalcitol 1 mcg 05/15/20 10:00 05/15/20 09:57 Zemplar - PO 1 mcg Q2D JOHN Administration Potassium Chloride 20 meq 05/14/20 10:00 05/15/20 21:03 K-Dur - PO 20 meq BID JOHN Administration Potassium Chloride 20 meq 05/16/20 10:00 K-Dur - PO 05/16/20 10:01 ONCE ONE Senna 2 tab 05/13/20 22:00 05/15/20 21:04 Senna - PO 2 tab HS JOHN Administration Torsemide 40 mg 05/14/20 10:00 05/15/20 09:56 Demadex - PO 40 mg DAILY@1000 JOHN Administration Torsemide 20 mg 05/13/20 18:00 05/15/20 17:08 Demadex - PO 20 mg DAILY@1800 JOHN Administration ASSESSMENT/PLAN: pt is a 79 y/o male with a PMHx of CHF, HTN, Afib (on Coumadin), chronic leg wounds, frequent falls. # Falls frequently Assessment/Plan: -fall precautions -repeat CT head neg x 2 -Xray hip no acute fx -will require rehab,pt in agreement Problems reviewed: Yes Code(s): R29.6 - REPEATED FALLS #BPH (benign prostatic hyperplasia) Assessment/Plan: continue avodart Code(s): N40.0 - BENIGN PROSTATIC HYPERPLASIA WITHOUT LOWER URINRY TRACT SYMP # DVT prophylaxis Assessment/Plan: OOB to chair daily -restart eliquis tonight Problems reviewed: Yes Code(s): Z29.9 - ENCOUNTER FOR PROPHYLACTIC MEASURES, UNSPECIFIED # A-fib Assessment/Plan: -restarted on eliquis continue coreg, cardizem continuous tele Code(s): I48.91 - UNSPECIFIED ATRIAL FIBRILLATION Qualifiers: Atrial fibrillation type: longstanding persistent Qualified Code(s): I48.11 - Longstanding persistent atrial fibrillation # CHF (congestive heart failure) Assessment/Plan: torsemide 40mg qaM and 20mg qpm hold metolazone which is BIW daily weights replete electrolytes PRN Code(s): I50.9 - HEART FAILURE, UNSPECIFIED Qualifiers: Heart failure type: diastolic Heart failure chronicity: chronic Qualified Code(s): I50.32 - Chronic diastolic (congestive) heart failure # Gait disorder Assessment/Plan: PT daily Short term rehab recommended fall precautions, bed alarm Problems reviewed: Yes Code(s): R26.9 - UNSPECIFIED ABNORMALITIES OF GAIT AND MOBILITY # HTN (hypertension) Assessment/Plan: coreg 25mg BID cardiac diet Problems reviewed: Yes Code(s): I10 - ESSENTIAL (PRIMARY) HYPERTENSION Qualifiers: Hypertension type: essential hypertension Qualified Code(s): I10 - Essential (primary) hypertension #Hypokalemia #Hypomagnesia -c/w oral K+, mag -monitor daily Impression/Plan Impression/Plan: Dispo: Pt requires discharge to SNF/Short term rehab due to unsteady gait and frequent fall Visit type - Emergency Visit Emergency Visit: Yes ED Registration Date: 05/12/20 Care time: The patient presented to the Emergency Department on the above date and was hospitalized for further evaluation of their emergent condition. - New Patient This patient is new to me today: No - Critical Care Critical Care patient: No - Medication Review Med list reviewed for High Risk Meds patients 65 and older: No
[2020-05-16] MEDS: DUTASTERIDE 0.5 MG CAP (FP) PO SCH (09:49)
[2020-05-16] MEDS: CARVEDILOL 25 MG TABLET (FP) PO SCH ×2 (09:49→22:09)
[2020-05-16] MEDS: MAGNESIUM OXIDE 400 MG TABLET (FP) PO SCH (09:49)
[2020-05-16] MEDS: POTASSIUM CHLORIDE TABS 20 MEQ TABLET.ER (FP) PO SCH ×2 (09:49→22:15)
[2020-05-16] MEDS: ALLOPURINOL 300 MG TABLET (FP) PO SCH (09:49)
[2020-05-16] MEDS: APIXABAN 5 MG TABLET PO SCH ×2 (09:49→22:15)
[2020-05-16] MEDS: TORSEMIDE 20 MG TABLET (FP) PO SCH ×2 (09:49→17:45)
[2020-05-16] MEDS: DOCUSATE SODIUM 100 MG CAPSULE (FP) PO SCH ×2 (09:49→22:15)
[2020-05-16] MEDS ORDERED: MAGNESIUM SULF 50% (8.12 MEQ/2 ML-1 GM VIAL) IVPB ONE (09:50)
[2020-05-16] MEDS ORDERED: MAGNESIUM 2GM/50ML STERILE WATER IVPB IVPB ONE (09:50)
[2020-05-16] MEDS ORDERED: POTASSIUM CHLORIDE TABS 20 MEQ TABLET.ER (FP) PO ONE (10:00)
[2020-05-16] MEDS: SENNOSIDES 8.6MG TABLET (FP) PO SCH (22:15)
[2020-05-17 08:27] LABS: BASO % 0.2 % (0-2.0); EOS % 3.1 % (0-4.5); HEMATOCRIT 35.4 % (35.4-49); HEMOGLOBIN 11.2 GM/dl (11.7-16.9); LYMPH % 17.4 % (8-40); MCHC 31.8 g/dl (32.0-35.9); MEAN CELL VOLUME 94.2 fl (80-96); MONO % 13.9 % (3.8-10.2); NEUT % 65.4 % (42.8-82.8); PLATELET COUNT 129 K/MM3 (134-434); RBC 3.75 M/mm3 (4.00-5.60); RDW 14.1 % (11.9-15.9); WHITE BLOOD COUNT 6.2 K/mm3 (4.0-10.8)
[2020-05-17 08:44] LABS: ALBUMIN 3.2 g/dl (3.4-5.0); CALCIUM 8.9 mg/dl (8.5-10); CREATININE 1.4 mg/dl (0.55-1.3); MAGNESIUM 1.8 mg/dL (1.8-2.4); POTASSIUM 3.5 mmol/L (3.5-5.1)
[2020-05-17] MEDS ORDERED: PT OWN MED DRAWER 7, Y5N ONE (09:27)
[2020-05-17] MEDS: MAGNESIUM OXIDE 400 MG TABLET (FP) PO SCH (10:38)
[2020-05-17] MEDS: ALLOPURINOL 300 MG TABLET (FP) PO SCH (10:38)
[2020-05-17] MEDS: APIXABAN 5 MG TABLET PO SCH (10:38)
[2020-05-17] MEDS: CARVEDILOL 25 MG TABLET (FP) PO SCH (10:38)
[2020-05-17] MEDS: POTASSIUM CHLORIDE TABS 20 MEQ TABLET.ER (FP) PO SCH (10:39)
[2020-05-17] MEDS: DUTASTERIDE 0.5 MG CAP (FP) PO SCH (10:39)
[2020-05-17] MEDS: DOCUSATE SODIUM 100 MG CAPSULE (FP) PO SCH (10:39)
[2020-05-17] MEDS: PARICALCITOL 1 MCG CAP PO SCH (10:40)
[2020-05-17] MEDS: TORSEMIDE 20 MG TABLET (FP) PO SCH (10:49)
[2020-05-17 16:17] VITALS: BP 141/84; PULSE 67; TEMP 98.4
== END 2020-05-17 15:00 | DRG 92 ==
LOC: FER 17:21 → FM/S 22:28 → UNDOADMIN 05-13 00:19 → FM/S 05-13 16:56
PROVIDERS: ADMIT Internal Medicine; ATTEND Registered Nurse Emergency
DX: R26.9 Unspecified abnormalities of gait and mobility (principal); I50.32 Chronic diastolic (congestive) heart failure; I48.11 Longstanding persistent atrial fibrillation; N17.9 Acute kidney failure, unspecified; R29.6 Repeated falls; N40.0 Benign prostatic hyperplasia without lower urinary tract symptoms; E87.6 Hypokalemia; M48.02 Spinal stenosis, cervical region; I11.0 Hypertensive heart disease with heart failure; S00.11XA Contusion of right eyelid and periocular area, initial encounter; S00.531A Contusion of lip, initial encounter; E86.0 Dehydration; W19.XXXA Unspecified fall, initial encounter; Y93.9 Activity, unspecified; Y92.89 Other specified places as the place of occurrence of the external cause; Y99.9 Unspecified external cause status; E66.9 Obesity, unspecified; Z68.37 Body mass index [BMI] 37.0-37.9, adult; R79.1 Abnormal coagulation profile
CPT/HCPCS: 36415; 70450-TC; 70486-TC; 71045-TC-FY; 72125-TC; 73502-TC-RT-FY; 80048; 80053; 81003; 81015; 82550; 82553; 82962; 83735; 84443; 84484; 85025; 85610; 85730; 87086; 90715; 93005; 97116-GP; 97162-GP; 99285-25; U0003

== ENCOUNTER 2021-08-19 12:28 | Emergency (ER) | payer OTHER, MEDICARE ==
[2021-08-19 13:03] VITALS: BP 126/82; PULSE 71; TEMP 97.8; BMI 39.7
[2021-08-19 14:03] LABS: ALBUMIN 3.1 g/dl (3.4-5.0); BILIRUBIN,TOTAL 0.6 mg/dl (0.2-1); CALCIUM 8.9 mg/dl (8.5-10); CREATININE 1.7 mg/dl (0.55-1.3); TOT PROT 6.2 g/dl (6.4-8.2)
[2021-08-19 15:03] LABS: BASO % 0.3 % (0-2.0); EOS % 1.6 % (0-4.5); HEMATOCRIT 34.3 % (35.4-49); HEMOGLOBIN 11.2 GM/dL (11.7-16.9); LYMPH % 11.5 % (8-40); MCHC 32.8 g/dl (32.0-35.9); MEAN CELL VOLUME 91.7 fl (80-96); MEAN PLT VOLUME 8.4 fl (7.5-11.1); MONO % 12.5 % (3.8-10.2); NEUT % 74.1 % (42.8-82.8); PLATELET COUNT 164 10^3/uL (134-434); RBC 3.74 M/mm3 (4.00-5.60); RDW 16.4 % (11.9-15.9); WHITE BLOOD COUNT 7.1 K/mm3 (4.0-10.0)
[2021-08-19] MEDS ORDERED: SULFAMETHOXAZOLE/TRIMETHOPRIM 800MG/160MG D.S. TABLET PO ONE (15:36)
[2021-08-19] MEDS ORDERED: SULFAMETHOXAZOLE/TRIMETHOPRIM 800MG/160MG D.S. TABLET ONE (15:42)
== END 2021-08-19 15:45 | disposition home or self-care (01) ==
LOC: FER 12:28
DX: I73.9 Peripheral vascular disease, unspecified (principal); L03.116 Cellulitis of left lower limb
CPT/HCPCS: 36415; 80053; 85025; 87040; 99283-25; C9803; U0003; U0005

== ENCOUNTER 2021-09-14 02:08 | Emergency (ER) | payer OTHER, MEDICARE ==
[2021-09-14 02:28] VITALS: BP 147/89; PULSE 63; TEMP 97.9; BMI 39.7
== END 2021-09-14 08:40 | disposition home or self-care (01) ==
LOC: FER 02:08
DX: S01.81XA Laceration without foreign body of other part of head, initial encounter (principal); W01.0XXA Fall on same level from slipping, tripping and stumbling without subsequent striking against object, initial encounter
CPT/HCPCS: 70450-TC; 99284-25

== ENCOUNTER 2021-11-03 06:07 | Observation (INO) | payer OTHER, MEDICARE ==
[2021-11-03] MEDS ORDERED: ACETAMINOPHEN 1000 MG/100 ML BAG IVPB ONE (06:39)
[2021-11-03 06:43] VITALS: BMI 36.2
[2021-11-03] MEDS ORDERED: ACETAMINOPHEN INJECTION 100 ML IVPB ONE (06:54)
[2021-11-03 07:00] LABS: BASO % 0.4 % (0-2.0); HEMATOCRIT 30.2 % (35.4-49); HEMOGLOBIN 9.9 GM/dL (11.7-16.9); LYMPH % 12.6 % (8-40); MCH 30.2 pg (25.7-33.7); MCHC 32.8 g/dl (32.0-35.9); MEAN PLT VOLUME 8.5 fl (7.5-11.1); MONO % 11.7 % (3.8-10.2); NEUT % 72.3 % (42.8-82.8); PLATELET COUNT 121 10^3/uL (134-434); RBC 3.29 M/mm3 (4.00-5.60); RDW 17.9 % (11.9-15.9); WHITE BLOOD COUNT 6.3 K/mm3 (4.0-10.0)
[2021-11-03 07:01] LABS: INR 1.76 (0.83-1.09); PROTHROMBIN TIME (PATIENT) 20.3 SEC (9.7-13.0)
[2021-11-03 07:13] LABS: BLOOD UREA NITROGEN 49.3 mg/dL (7-18); CALCIUM 8.7 mg/dL (8.5-10.1)
[2021-11-03 07:16] LABS: CREATININE 1.6 mg/dL (0.55-1.3)
[2021-11-03 07:18] LABS: BILIRUBIN,TOTAL 0.5 mg/dL (0.2-1); TOT PROT 6.5 g/dl (6.4-8.2)
[2021-11-03 07:21] LABS: N-TERMINAL BNP 9521.1 pg/ml (5-450)
[2021-11-03 09:11] LABS: MAGNESIUM 2.2 mg/dL (1.8-2.4)
[2021-11-03 09:15] LABS: PHOSPHOROUS 3.7 mg/dL (2.5-4.9)
[2021-11-03 10:45] LABS: PH,URINE 6.5 (5.0-8.0); URINE APPEARANCE CLEAR; URINE BILIRUBIN NEGATIVE (NEGATIVE); URINE COLOR YELLOW; URINE GLUCOSE (UA) NEGATIVE (NEGATIVE); URINE KETONE NEGATIVE (NEGATIVE); URINE LEUK ESTERASE NEGATIVE (NEGATIVE); URINE NITRITE NEGATIVE (NEGATIVE); URINE PROTEIN TRACE (NEGATIVE); URINE UROBILINOGEN 0.2 mg/dL (0.2-1.0)
[2021-11-03 10:49] LABS: BASO % 0.4 % (0-2.0); EOS % 2.8 % (0-4.5); HEMATOCRIT 29.1 % (35.4-49); HEMOGLOBIN 9.2 GM/dL (11.7-16.9); LYMPH % 14.2 % (8-40); MCH 29.5 pg (25.7-33.7); MCHC 31.6 g/dl (32.0-35.9); MEAN CELL VOLUME 93.4 fl (80-96); MEAN PLT VOLUME 7.8 fl (7.5-11.1); MONO % 14.1 % (3.8-10.2); NEUT % 68.5 % (42.8-82.8); PLATELET COUNT 110 10^3/uL (134-434); RBC 3.12 M/mm3 (4.00-5.60); WHITE BLOOD COUNT 5.8 K/mm3 (4.0-10.0)
[2021-11-03] MEDS ORDERED: TORSEMIDE 20 MG TABLET (FP) PO SCH (11:15)
[2021-11-03] MEDS ORDERED: ACETAMINOPHEN 325 MG TABLET (FP) PO PRN (15:31)
[2021-11-03] MEDS: CARVEDILOL 12.5 MG TABLET (FP) PO SCH (16:18)
[2021-11-03] MEDS: INSULIN SLIDING SCALE (NOVOLOG) 1 VIAL SQ SCH ×2 (16:18→16:41)
[2021-11-03] MEDS: LISINOPRIL 5 MG TABLET PO SCH (16:19)
[2021-11-04] MEDS ORDERED: CARVEDILOL 12.5 MG TABLET (FP) ONE (00:01)
[2021-11-04] MEDS ORDERED: POLYETHYLENE GLYCOL (HEALTHYLAX) 3350 17 GM PACKET ONE (00:01)
[2021-11-04] MEDS ORDERED: SENNOSIDES 8.6MG TABLET (FP) PO ONE (00:02)
[2021-11-04] MEDS: POLYETHYLENE GLYCOL (HEALTHYLAX) 3350 17 GM PACKET PO SCH ×3 (00:25→22:42)
[2021-11-04] MEDS: INSULIN SLIDING SCALE (NOVOLOG) 1 VIAL SQ SCH ×5 (00:25→22:43)
[2021-11-04] MEDS: SENNOSIDES 8.6MG TABLET (FP) PO SCH ×2 (00:25→22:42)
[2021-11-04] MEDS: CARVEDILOL 12.5 MG TABLET (FP) PO SCH ×3 (00:25→22:42)
[2021-11-04 08:17] LABS: BASO % 0.6 % (0-2.0); EOS % 3.3 % (0-4.5); HEMATOCRIT 30.6 % (35.4-49); HEMOGLOBIN 9.6 GM/dL (11.7-16.9); LYMPH % 18.4 % (8-40); MCH 29.4 pg (25.7-33.7); MCHC 31.4 g/dl (32.0-35.9); MEAN CELL VOLUME 93.7 fl (80-96); MEAN PLT VOLUME 8.2 fl (7.5-11.1); MONO % 14.2 % (3.8-10.2); NEUT % 63.5 % (42.8-82.8); PLATELET COUNT 110 10^3/uL (134-434); RBC 3.27 M/mm3 (4.00-5.60); RDW 17.9 % (11.9-15.9); WHITE BLOOD COUNT 4.8 K/mm3 (4.0-10.0)
[2021-11-04 08:50] LABS: ALBUMIN 2.9 g/dl (3.4-5.0); BLOOD UREA NITROGEN 47.7 mg/dL (7-18); CALCIUM 9.1 mg/dL (8.5-10.1); MAGNESIUM 2.4 mg/dL (1.8-2.4)
[2021-11-04 08:53] LABS: CREATININE 1.6 mg/dL (0.55-1.3)
[2021-11-04 08:55] LABS: BILIRUBIN,TOTAL 0.6 mg/dL (0.2-1); TOT PROT 6.4 g/dl (6.4-8.2)
[2021-11-04] MEDS: APIXABAN 2.5 MG TABLET PO SCH ×2 (09:59→22:42)
[2021-11-04] MEDS ORDERED: PNEUMOC 13-VAL CONJ-DIP CRM/PF 0.5 ML DISP.SYRIN IM ONE (10:00)
[2021-11-04] MEDS ORDERED: TORSEMIDE 20 MG TABLET (FP) PO SCH (10:39)
[2021-11-04] MEDS ORDERED: ZINC OXIDE 20% TOPICAL OINTMENT 30 GM TUBE TP ONE (19:22)
[2021-11-04] MEDS: COLLAGENASE CLOSTRIDIUM HIST. 30 GRAMS TUBE TP SCH (22:43)
[2021-11-05] MEDS: INSULIN SLIDING SCALE (NOVOLOG) 1 VIAL SQ SCH ×4 (06:37→21:36)
[2021-11-05 07:42] LABS: BASO % 0.5 % (0-2.0); EOS % 2.8 % (0-4.5); HEMATOCRIT 30.5 % (35.4-49); HEMOGLOBIN 9.7 GM/dL (11.7-16.9); MCH 29.5 pg (25.7-33.7); MCHC 31.8 g/dl (32.0-35.9); MEAN PLT VOLUME 7.9 fl (7.5-11.1); MONO % 12.5 % (3.8-10.2); NEUT % 68.2 % (42.8-82.8); PLATELET COUNT 110 10^3/uL (134-434); RBC 3.28 M/mm3 (4.00-5.60); RDW 17.7 % (11.9-15.9); WHITE BLOOD COUNT 5.2 K/mm3 (4.0-10.0)
[2021-11-05 08:08] LABS: CALCIUM 8.7 mg/dL (8.5-10.1)
[2021-11-05 08:09] LABS: BLOOD UREA NITROGEN 43.7 mg/dL (7-18); MAGNESIUM 2.5 mg/dL (1.8-2.4)
[2021-11-05 08:12] LABS: CREATININE 1.3 mg/dL (0.55-1.3); PHOSPHOROUS 3.1 mg/dL (2.5-4.9)
[2021-11-05] MEDS: APIXABAN 2.5 MG TABLET PO SCH ×2 (10:08→21:30)
[2021-11-05] MEDS: LISINOPRIL 5 MG TABLET PO SCH (10:08)
[2021-11-05] MEDS: CARVEDILOL 12.5 MG TABLET (FP) PO SCH ×2 (10:08→21:30)
[2021-11-05] MEDS: COLLAGENASE CLOSTRIDIUM HIST. 30 GRAMS TUBE TP SCH (10:09)
[2021-11-05] MEDS: POLYETHYLENE GLYCOL (HEALTHYLAX) 3350 17 GM PACKET PO SCH ×2 (10:09→21:36)
[2021-11-05] MEDS: FUROSEMIDE 40 MG/4 ML INJECTABLE VIAL IVPUSH SCH (10:12)
[2021-11-05] MEDS: SENNOSIDES 8.6MG TABLET (FP) PO SCH (21:30)
[2021-11-06] MEDS: INSULIN SLIDING SCALE (NOVOLOG) 1 VIAL SQ SCH ×4 (06:28→21:32)
[2021-11-06 07:22] LABS: BASO % 0.5 % (0-2.0); EOS % 3.3 % (0-4.5); HEMATOCRIT 29.7 % (35.4-49); HEMOGLOBIN 9.7 GM/dL (11.7-16.9); LYMPH % 18.5 % (8-40); MCH 30.1 pg (25.7-33.7); MCHC 32.8 g/dl (32.0-35.9); MEAN CELL VOLUME 91.9 fl (80-96); MEAN PLT VOLUME 8.2 fl (7.5-11.1); MONO % 13.5 % (3.8-10.2); NEUT % 64.2 % (42.8-82.8); PLATELET COUNT 116 10^3/uL (134-434); RBC 3.23 M/mm3 (4.00-5.60); RDW 17.5 % (11.9-15.9); WHITE BLOOD COUNT 4.5 K/mm3 (4.0-10.0)
[2021-11-06 07:31] LABS: CALCIUM 9.1 mg/dL (8.5-10.1)
[2021-11-06 07:32] LABS: BLOOD UREA NITROGEN 42.3 mg/dL (7-18); MAGNESIUM 2.3 mg/dL (1.8-2.4)
[2021-11-06 07:35] LABS: CREATININE 1.3 mg/dL (0.55-1.3)
[2021-11-06] MEDS: LISINOPRIL 5 MG TABLET PO SCH (09:19)
[2021-11-06] MEDS: CARVEDILOL 12.5 MG TABLET (FP) PO SCH ×2 (09:19→21:29)
[2021-11-06] MEDS: APIXABAN 2.5 MG TABLET PO SCH ×2 (09:19→21:29)
[2021-11-06] MEDS: FUROSEMIDE 40 MG/4 ML INJECTABLE VIAL IVPUSH SCH (09:20)
[2021-11-06] MEDS: POLYETHYLENE GLYCOL (HEALTHYLAX) 3350 17 GM PACKET PO SCH ×2 (09:20→21:32)
[2021-11-06] MEDS: COLLAGENASE CLOSTRIDIUM HIST. 30 GRAMS TUBE TP SCH (09:20)
[2021-11-06] MEDS: SENNOSIDES 8.6MG TABLET (FP) PO SCH (21:29)
[2021-11-07] MEDS: INSULIN SLIDING SCALE (NOVOLOG) 1 VIAL SQ SCH ×2 (06:18→11:47)
[2021-11-07 07:49] LABS: BASO % 0.4 % (0-2.0); EOS % 3.6 % (0-4.5); HEMATOCRIT 29.9 % (35.4-49); HEMOGLOBIN 9.8 GM/dL (11.7-16.9); MCH 30.4 pg (25.7-33.7); MCHC 32.9 g/dl (32.0-35.9); MEAN CELL VOLUME 92.6 fl (80-96); MEAN PLT VOLUME 7.7 fl (7.5-11.1); MONO % 14.3 % (3.8-10.2); NEUT % 64.7 % (42.8-82.8); PLATELET COUNT 106 10^3/uL (134-434); RBC 3.23 M/mm3 (4.00-5.60); RDW 17.3 % (11.9-15.9); WHITE BLOOD COUNT 4.2 K/mm3 (4.0-10.0)
[2021-11-07 08:10] LABS: CALCIUM 8.9 mg/dL (8.5-10.1)
[2021-11-07 08:11] LABS: BLOOD UREA NITROGEN 47.2 mg/dL (7-18); MAGNESIUM 2.4 mg/dL (1.8-2.4)
[2021-11-07 08:14] LABS: CREATININE 1.3 mg/dL (0.55-1.3); PHOSPHOROUS 3.6 mg/dL (2.5-4.9)
[2021-11-07] MEDS: POLYETHYLENE GLYCOL (HEALTHYLAX) 3350 17 GM PACKET PO SCH (09:25)
[2021-11-07] MEDS: APIXABAN 2.5 MG TABLET PO SCH (09:25)
[2021-11-07] MEDS: FUROSEMIDE 40 MG/4 ML INJECTABLE VIAL IVPUSH SCH (09:25)
[2021-11-07] MEDS: CARVEDILOL 12.5 MG TABLET (FP) PO SCH (09:25)
[2021-11-07] MEDS: LISINOPRIL 5 MG TABLET PO SCH (09:25)
[2021-11-07 11:16] VITALS: BP 130/72; PULSE 82; TEMP 98
[2021-11-07] MEDS: COLLAGENASE CLOSTRIDIUM HIST. 30 GRAMS TUBE TP SCH (11:47)
== END 2021-11-07 14:16 ==
LOC: JER 06:07 → JERBED 10:02 → UNDOADMOB 10:02 → INTOOBSV 10:02 → JERBED 11:00 → J4W 11-04 00:54
PROVIDERS: ADMIT Internal Medicine; ATTEND Internal Medicine
PROC: 3E033GC Introduction of Other Therapeutic Substance into Peripheral Vein, Percutaneous Approach (ICD-10-PCS; principal; 2021-11-03)
PROC: 3E033NZ Introduction of Analgesics, Hypnotics, Sedatives into Peripheral Vein, Percutaneous Approach (ICD-10-PCS; 2021-11-03)
DX: I11.0 Hypertensive heart disease with heart failure (principal); I50.9 Heart failure, unspecified; R09.02 Hypoxemia; E66.9 Obesity, unspecified; Z68.39 Body mass index [BMI] 39.0-39.9, adult; W18.39XA Other fall on same level, initial encounter; Y93.89 Activity, other specified; Y92.000 Kitchen of unspecified non-institutional (private) residence as the place of occurrence of the external cause; E11.22 Type 2 diabetes mellitus with diabetic chronic kidney disease; N18.9 Chronic kidney disease, unspecified; I48.91 Unspecified atrial fibrillation; L08.9 Local infection of the skin and subcutaneous tissue, unspecified; Z79.01 Long term (current) use of anticoagulants; I87.2 Venous insufficiency (chronic) (peripheral)
CPT/HCPCS: 29581-LT; 36415; 70450-TC; 71045-TC-FY; 72125-TC; 72170-TC-FY; 80048; 80053; 81003; 82272; 82550; 82607; 82728; 82746; 82962; 83540; 83550; 83735; 83880; 84100; 84155; 84165; 84484; 85025; 85610; 85730; 87070; 87186; 87205; 93005; 93010; 96374; 96375; 97116-GP; 97162-GP; 99285-25; C9803; G0378; U0003; U0005